=== PATIENT | male | born 1975 | race Caucasian/White ===

== ENCOUNTER 2018-09-20 23:56 | Inpatient (IN) | payer MEDICARE, OTHER ==
[~2018-09-20] VITALS: Ht 152.4 cm; Wt 64.9 kg
[~2018-09-20 23:56] MED LIST: RENVELA; diovan; norvasc; prevacid
[2018-09-21] VITALS (53 sets, daily range): BP systolic 133–185; BP diastolic 57–99
[2018-09-21] MEDS ORDERED: SODIUM CHLORIDE 0.9% 1,000 ML IV ONE (00:13)
[2018-09-21] MEDS ORDERED: ONDANSETRON HCL 4MG/2ML INJ IV STA (00:13)
[2018-09-21] MEDS ORDERED: AZITHROMYCIN 500 MG in DEXT 5% WATER 250 ML IV ONE (00:15)
[2018-09-21] MEDS ORDERED: CEFTRIAXONE 1 G PREMIX 50 ML IV ONE (00:15)
[2018-09-21] MEDS ORDERED: DEXTROSE 50% WATER 50ML SYRINGE IV ONE (00:15)
[2018-09-21 00:46] LABS: BG BASE EXCESS -5.9 mmol/L (-2.0-2.0); BG CARBOXYHEMOGLOBIN 1.3 % (0.5-1.5); BG DEOXYHEMOGLOBIN 9.3 % (0.0-5.0); BG FRACTION INSPIRED OXYGEN 100; BG HCO3 ACT 20.7 mmol/L (22.0-26.0); BG METHEMOGLOBIN 0.3 % (0.0-1.5); BG OXYGEN SATURATION 90.5 % (92.0-98.5); BG OXYHEMOGLOBIN 89.1 % (94.0-97.0); BG PCO2 44.9 mmHg (35.0-45.0); BG PH 7.282 (7.350-7.450); BG PO2 72.3 mmHg (75.0-100.0); BG SAMPLE SITE RIGHT RADIAL; BG TOTAL HEMOGLOBIN 12.4 g/dL (12.0-18.0); BG VENT MODE MASK - NRB
[2018-09-21 00:59] LABS: INR 1.1; PROTHROMBIN TIME 11.3 sec (9.1-11.1)
[2018-09-21 01:00] LABS: BASOPHILS % 1.1 % (0.0-2.0); HEMATOCRIT. 39.7 % (42.0-52.0); HEMOGLOBIN. 12.7 g/dL (14.0-18.0); LYMPHOCYTES % 8.1 % (20.0-50.0); MEAN CORPUSCULAR VOLUME 93.8 fL (80.0-94.0); MEAN PLATELET VOLUME 8.5 fl (7.4-10.4); MONOCYTES % 5.4 % (2.0-8.0); NEUTROPHILS % 82.4 % (40.0-76.0); PLATELET 234 x1000/uL (130-400); RED BLOOD CELL COUNT 4.24 mill/uL (4.7-6.1)
[2018-09-21] MEDS ORDERED: HYDROCORTISONE SOD SUCCINATE 100 MG/2 ML VIAL IV ONE (01:00)
[2018-09-21 01:01] LABS: CHLORIDE 98 mEq/L (98-107)
[2018-09-21 01:07] LABS: ETHANOL BLOOD < 10 mg/dL
[2018-09-21 01:08] LABS: BETA HYDROXYBUTYRATE 0.4 mMol/L (0.0-0.3)
[2018-09-21] MEDS ORDERED: DEXT 5%/0.45% NACL 1000ML 1,000 ML IV SCH (04:01)
[2018-09-21] MEDS ORDERED: PIPERACILLIN/TAZ 3.375G PREMIX 50 ML IV SCH (04:15)
[2018-09-21] MEDS ORDERED: VANCOMYCIN 1 G PREMIX 200 ML IV NR (04:15)
[2018-09-21] MEDS ORDERED: ONDANSETRON HCL 4MG/2ML INJ IV PRN (04:15)
[2018-09-21] MEDS ORDERED: GUAIFENESIN 200MG/10ML SUGAR FREE UDC PO PRN (04:15)
[2018-09-21] MEDS: IPRATROPIUM/ALBUTEROL 0.5-3(2.5)MG/3ML NEB HHN SCH ×6 (04:15→23:55)
[2018-09-21] MEDS ORDERED: IPRATROPIUM/ALBUTEROL 0.5-3(2.5)MG/3ML NEB INH PRN (04:15)
[2018-09-21] MEDS ORDERED: DEXTROSE 50% WATER 50ML SYRINGE IV PRN (04:15)
[2018-09-21] MEDS ORDERED: DIPHENHYDRAMINE 50MG/ML VIAL IV PRN (04:15)
[2018-09-21] MEDS: INSULIN LISPRO 100 UNITS/ML SUBCUT SCH ×4 (09:00→20:36)
[2018-09-21] MEDS: BLOOD SUGAR DIAGNOSTIC STRIP TEST SCH ×4 (09:00→20:18)
[2018-09-21] MEDS ORDERED: PANTOPRAZOLE SODIUM 40 MG/VIAL IV SCH (09:00)
[2018-09-21] MEDS ORDERED: ALPRAZOLAM 0.25 MG TABLET PO SCH (10:15)
[2018-09-21] MEDS ORDERED: IPRATROPIUM/ALBUTEROL 0.5-3(2.5)MG/3ML NEB HHN PRN (10:15)
[2018-09-21] MEDS: OMEPRAZOLE 20MG CAPSULE EXTENDED RELEASE PO SCH (10:40)
[2018-09-21] MEDS: FOLIC ACID/VITAMIN B COMP W-C TABLET PO SCH (10:40)
[2018-09-21] MEDS: AMLODIPINE 10MG TABLET PO SCH (10:40)
[2018-09-21] MEDS: PIPERACILLIN/TAZ 2.25G PREMIX 50 ML IV SCH ×2 (11:46→16:52)
[2018-09-21] MEDS: CALCIUM CARBONATE 500MG TABLET CHEW PO SCH ×2 (13:20→16:51)
[2018-09-21] MEDS: HYDRALAZINE HCL 100MG TABLET PO SCH ×3 (14:00→21:28)
[2018-09-21] MEDS: CLONIDINE 0.1MG TABLET PO PRN (16:52)
[2018-09-21] MEDS: LABETALOL HCL 100MG TABLET PO SCH (20:04)
[2018-09-22] VITALS (29 sets, daily range): BP systolic 134–164; BP diastolic 57–76
[2018-09-22] MEDS: CLONIDINE 0.1MG TABLET PO PRN (00:21)
[2018-09-22] MEDS: ACETAMINOPHEN 325MG TABLET PO PRN ×3 (00:28→04:08)
[2018-09-22] MEDS: PIPERACILLIN/TAZ 2.25G PREMIX 50 ML IV SCH ×2 (02:07→10:01)
[2018-09-22] MEDS: IPRATROPIUM/ALBUTEROL 0.5-3(2.5)MG/3ML NEB HHN SCH ×2 (04:12→08:41)
[2018-09-22] MEDS: HYDRALAZINE HCL 100MG TABLET PO SCH (05:26)
[2018-09-22] MEDS: BLOOD SUGAR DIAGNOSTIC STRIP TEST SCH (08:05)
[2018-09-22] MEDS: OMEPRAZOLE 20MG CAPSULE EXTENDED RELEASE PO SCH (08:05)
[2018-09-22] MEDS: CALCIUM CARBONATE 500MG TABLET CHEW PO SCH (08:05)
[2018-09-22] MEDS: FOLIC ACID/VITAMIN B COMP W-C TABLET PO SCH (08:05)
[2018-09-22] MEDS: INSULIN LISPRO 100 UNITS/ML SUBCUT SCH (08:06)
[2018-09-22] MEDS: LABETALOL HCL 100MG TABLET PO SCH (08:08)
[2018-09-22] MEDS: AMLODIPINE 10MG TABLET PO SCH (08:08)
[2018-09-22] MEDS ORDERED: LOSARTAN POTASSIUM 100 MG TABLET PO SCH (09:00)
[2018-09-22] MEDS ORDERED: VANCOMYCIN 500 MG PREMIX 100 ML IV SCH (16:00)
== END 2018-09-22 12:00 | disposition left against medical advice (07) | DRG 193 ==
LOC: ER 23:56 → CVICU 09-21 02:42 → EDBEDREQSVC 09-21 02:49 → EDBEDREQTM 09-21 02:49 → EDBEDREQ 09-21 02:49 → ENRESERV 09-21 07:17
PROVIDERS: ADMIT Internal Medicine; ATTEND Internal Medicine
PROC: 5A09357 Assistance with Respiratory Ventilation, Less than 24 Consecutive Hours, Continuous Positive Airway Pressure (ICD-10-PCS; principal; 2018-09-21)
PROC: 5A1D70Z Performance of Urinary Filtration, Intermittent, Less than 6 Hours Per Day (ICD-10-PCS; 2018-09-21)
PROC: 5A1D70Z Performance of Urinary Filtration, Intermittent, Less than 6 Hours Per Day (ICD-10-PCS; 2018-09-22)
DX: J18.9 Pneumonia, unspecified organism (principal); J96.01 Acute respiratory failure with hypoxia; G93.41 Metabolic encephalopathy; N18.6 End stage renal disease; I50.32 Chronic diastolic (congestive) heart failure; I13.2 Hypertensive heart and chronic kidney disease with heart failure and with stage 5 chronic kidney disease, or end stage renal disease; E10.649 Type 1 diabetes mellitus with hypoglycemia without coma; E87.5 Hyperkalemia; D64.9 Anemia, unspecified; I27.20 Pulmonary hypertension, unspecified; E10.40 Type 1 diabetes mellitus with diabetic neuropathy, unspecified; E10.65 Type 1 diabetes mellitus with hyperglycemia; I44.4 Left anterior fascicular block; I45.81 Long QT syndrome; E10.319 Type 1 diabetes mellitus with unspecified diabetic retinopathy without macular edema; E10.22 Type 1 diabetes mellitus with diabetic chronic kidney disease; E10.51 Type 1 diabetes mellitus with diabetic peripheral angiopathy without gangrene; Z79.4 Long term (current) use of insulin; Z82.3 Family history of stroke; Z82.49 Family history of ischemic heart disease and other diseases of the circulatory system; Z89.421 Acquired absence of other right toe(s); Z83.3 Family history of diabetes mellitus; Z91.15 Patient's noncompliance with renal dialysis; Z91.19 Patient's noncompliance with other medical treatment and regimen; Z99.2 Dependence on renal dialysis; Z89.431 Acquired absence of right foot
CPT/HCPCS: 36415; 36600; 71045; 80048; 80320; 82010; 82375; 82805; 82962; 83605; 84145; 84443; 84484; 87804; 93005; 93923; 96365; 96367; 99291; J0456; J0696; J1720; J1815; J2405; J2543; J3370; J7030; J7040; J7060; J7620; G0480

== ENCOUNTER 2018-11-22 22:27 | Emergency (ER) | payer MEDICARE, OTHER ==
[~2018-11-22] VITALS: Ht 172.7 cm; Wt 175.0 kg
[2018-11-22] MEDS ORDERED: DEXT 10% WATER 1,000 ML IV ONE (23:25)
[2018-11-23 00:52] VITALS: BP 139/65
== END 2018-11-23 01:06 | disposition left against medical advice (07) ==
LOC: ER 22:27 → CANBEDREQ 11-23 01:59
DX: E11.649 Type 2 diabetes mellitus with hypoglycemia without coma (principal); E11.22 Type 2 diabetes mellitus with diabetic chronic kidney disease; N18.6 End stage renal disease; Z99.2 Dependence on renal dialysis; Z79.899 Other long term (current) drug therapy
CPT/HCPCS: 71045; 82962; 93005; 99283

== ENCOUNTER 2019-05-07 12:55 | Emergency (ER) | payer MEDICARE, OTHER ==
[~2019-05-07] VITALS: Ht 165.1 cm; Wt 73.0 kg
[2019-05-07] MEDS ORDERED: DEXTROSE 50% WATER 50ML SYRINGE IV ONE ×2 (13:06→13:30)
[2019-05-07 13:39] LABS: HEMATOCRIT. 44.2 % (42.0-52.0); HEMOGLOBIN. 14.8 g/dL (14.0-18.0); MEAN CORPUSCULAR HEMOGLOBIN 31.1 pg (28.0-32.0); MEAN CORPUSCULAR VOLUME 93.1 fL (80.0-94.0); MEAN PLATELET VOLUME 8.2 fl (7.4-10.4); PLATELET 240 x1000/uL (130-400); RED BLOOD CELL COUNT 4.75 mill/uL (4.7-6.1); RED CELL DISTRIBUTION WIDTH 16.4 % (11.6-14.6)
[2019-05-07 13:46] LABS: CHLORIDE 102 mEq/L (98-107)
[2019-05-07 14:05] LABS: PLATELET ESTIMATE NORMAL
[2019-05-07 14:17] VITALS: BP 118/67
[2019-05-07 16:25] LABS: CLARITY URINE CLEAR (CLEAR); COLOR URINE YELLOW (YELLOW); KETONES URINE NEGATIVE (NEGATIVE); LEUKOCYTE ESTERASE URINE NEGATIVE (NEGATIVE); NITRITE URINE NEGATIVE (NEGATIVE); OCCULT BLOOD URINE NEGATIVE (NEGATIVE); PH URINE 6.5 (4.5-8.0); PROTEIN URINE NEGATIVE (NEGATIVE); SPECIFIC GRAVITY URINE 1.007 (1.005-1.030); UROBILINOGEN URINE 0.2 E.U./dL (0.2-1.0)
== END 2019-05-07 14:22 | disposition left against medical advice (07) ==
LOC: ER 13:17
DX: E11.649 Type 2 diabetes mellitus with hypoglycemia without coma (principal); I12.0 Hypertensive chronic kidney disease with stage 5 chronic kidney disease or end stage renal disease; I50.9 Heart failure, unspecified; N18.6 End stage renal disease; Z99.2 Dependence on renal dialysis
CPT/HCPCS: 36415; 81003; 82962; 96374; 99283

== ENCOUNTER 2019-06-20 09:02 | Inpatient (IN) | payer MEDICARE, OTHER ==
[~2019-06-20] VITALS: Ht 160 cm; Wt 61.2 kg
[~2019-06-20 09:02] MED LIST changes: -RENVELA; +RENVELA PO; -diovan; +diovan PO; -norvasc; +norvasc PO; -prevacid; +prevacid PO
[2019-06-20] MEDS ORDERED: SODIUM CHLORIDE 0.9% 1000ML BAG (SEPSIS BOLUS) IV ONE (10:15)
[2019-06-20 10:24] LABS: HEMATOCRIT. 26.1 % (42.0-52.0); HEMOGLOBIN. 8.8 g/dL (14.0-18.0); MEAN CORPUSCULAR HEMOGLOBIN 30.4 pg (28.0-32.0); MEAN CORPUSCULAR VOLUME 89.7 fL (80.0-94.0); MEAN PLATELET VOLUME 9.3 fl (7.4-10.4); PLATELET 248 x1000/uL (130-400); RED BLOOD CELL COUNT 2.91 mill/uL (4.7-6.1); RED CELL DISTRIBUTION WIDTH 15.5 % (11.6-14.6)
[2019-06-20 10:27] LABS: CHLORIDE 93 mEq/L (98-107)
[2019-06-20 10:56] LABS: PLATELET ESTIMATE NORMAL
[2019-06-20] MEDS ORDERED: AZITHROMYCIN 500 MG in DEXT 5% WATER 250 ML IV ONE (12:15)
[2019-06-20] MEDS ORDERED: PIPERACILLIN/TAZ 3.375G PREMIX 50 ML IV ONE (12:15)
[2019-06-20] MEDS ORDERED: VANCOMYCIN 1 G PREMIX 200 ML IV ONE (12:15)
[2019-06-20] MEDS ORDERED: INSULIN REGULAR (HUMULIN R) 300UNITS/3ML SUBCUT ONE (14:00)
[2019-06-20] MEDS ORDERED: ONDANSETRON HCL 4MG/2ML INJ IV PRN (14:45)
[2019-06-20] MEDS ORDERED: AZITHROMYCIN 500 MG TABLET PO SCH ×2 (15:00→20:30)
[2019-06-20] MEDS ORDERED: POTASSIUM CHLORIDE 20MEQ/PACKET PO ONE (15:00)
[2019-06-20] MEDS ORDERED: BLOOD SUGAR DIAGNOSTIC STRIP TEST SCH (17:00)
[2019-06-20] MEDS ORDERED: PIPERACILLIN/TAZ 3.375G PREMIX 50 ML IV SCH (18:00)
[2019-06-20 20:00] VITALS: BP 161/59
[2019-06-20] MEDS ORDERED: DEXTROSE 50% WATER 50ML SYRINGE IV PRN (20:00)
[2019-06-20] MEDS ORDERED: POTASSIUM CHLORIDE 20MEQ/PACKET PO NR (20:15)
[2019-06-20] MEDS: HEPARIN 5000 UNITS/ML VIAL SUBCUT SCH (20:54)
[2019-06-20] MEDS ORDERED: INSULIN LISPRO 100 UNITS/ML SUBCUT SCH (21:00)
[2019-06-20] MEDS: PIPERACILLIN/TAZOBACTAM 3.375 G in DEXT 5% WATER 100 ML IV SCH (21:51)
[2019-06-20] MEDS: BLOOD SUGAR DIAGNOSTIC STRIP TEST SCH (22:05)
[2019-06-20] MEDS ORDERED: INSULIN LISPRO 100 UNITS/ML SUBCUT NR (22:45)
[2019-06-20] MEDS: GUAIFENESIN-DM 200MG-20MG/10ML UDC PO PRN (22:49)
[2019-06-20] MEDS ORDERED: VANCOMYCIN 500 MG PREMIX 100 ML IV NR (23:00)
[2019-06-20] MEDS: ACETAMINOPHEN 325MG TABLET PO PRN (23:40)
[2019-06-21] VITALS: BP_SYST 150; BP_SYST 154; BP_DIAS 53; BP_DIAS 71
[2019-06-21] MEDS: INSULIN GLARGINE UD 100 UNITS/ML SYR SUBCUT SCH ×2 (00:19→22:03)
[2019-06-21] MEDS ORDERED: INS7030 SUBCUT (00:58)
[2019-06-21 04:00] VITALS: BP 145/56
[2019-06-21] MEDS: PIPERACILLIN/TAZOBACTAM 3.375 G in DEXT 5% WATER 100 ML IV SCH (05:45)
[2019-06-21] MEDS: BLOOD SUGAR DIAGNOSTIC STRIP TEST SCH ×4 (06:44→21:00)
[2019-06-21] MEDS: GUAIFENESIN-DM 200MG-20MG/10ML UDC PO PRN ×3 (07:13→21:19)
[2019-06-21 08:00] VITALS: BP 156/98
[2019-06-21] MEDS: HEPARIN 5000 UNITS/ML VIAL SUBCUT SCH ×2 (08:18→21:18)
[2019-06-21] MEDS: INSULIN LISPRO 100 UNITS/ML SUBCUT SCH ×4 (08:23→21:00)
[2019-06-21] MEDS: AZITHROMYCIN 500 MG TABLET PO SCH (08:25)
[2019-06-21 08:28] LABS: CHLORIDE 94 mEq/L (98-107)
[2019-06-21] MEDS: ACETAMINOPHEN 325MG TABLET PO PRN ×2 (09:41→23:05)
[2019-06-21 09:42] LABS: BASOPHILS % 1.1 % (0.0-2.0); EOSINOPHILS % 1.4 % (0.0-5.0); HEMATOCRIT. 26.6 % (42.0-52.0); HEMOGLOBIN. 8.8 g/dL (14.0-18.0); LYMPHOCYTES % 7.1 % (20.0-50.0); MEAN CORPUSCULAR HEMOGLOBIN 29.9 pg (28.0-32.0); MEAN CORPUSCULAR VOLUME 90.4 fL (80.0-94.0); MEAN PLATELET VOLUME 9.2 fl (7.4-10.4); MONOCYTES % 7.8 % (2.0-8.0); NEUTROPHILS % 82.6 % (40.0-76.0); PLATELET 203 x1000/uL (130-400); RED BLOOD CELL COUNT 2.94 mill/uL (4.7-6.1); RED CELL DISTRIBUTION WIDTH 15.6 % (11.6-14.6)
[2019-06-21] MEDS ORDERED: POTASSIUM CHLORIDE 20MEQ/PACKET PO NR (10:00)
[2019-06-21 12:00] VITALS: BP 134/86
[2019-06-21] MEDS: PIPERACILLIN/TAZOBACTAM 2.25 G in DEXTROSE 5% WATER 50 ML IV SCH ×2 (14:02→22:05)
[2019-06-21 16:00] VITALS: BP 158/63
[2019-06-21 20:00] VITALS: BP 146/58
[2019-06-22] VITALS (7 sets, daily range): BP systolic 128–169; BP diastolic 47–73
[2019-06-22] MEDS: PIPERACILLIN/TAZOBACTAM 2.25 G in DEXTROSE 5% WATER 50 ML IV SCH ×3 (05:17→22:46)
[2019-06-22] MEDS: BLOOD SUGAR DIAGNOSTIC STRIP TEST SCH ×4 (06:31→21:25)
[2019-06-22] MEDS: HEPARIN 5000 UNITS/ML VIAL SUBCUT SCH ×2 (08:13→21:45)
[2019-06-22] MEDS: INSULIN LISPRO 100 UNITS/ML SUBCUT SCH ×4 (08:14→21:44)
[2019-06-22] MEDS: AZITHROMYCIN 500 MG TABLET PO SCH (08:14)
[2019-06-22 08:38] LABS: BASOPHILS % 0.9 % (0.0-2.0); HEMATOCRIT. 26.8 % (42.0-52.0); HEMOGLOBIN. 8.9 g/dL (14.0-18.0); MEAN CORPUSCULAR HEMOGLOBIN 29.9 pg (28.0-32.0); MEAN CORPUSCULAR VOLUME 90.3 fL (80.0-94.0); MEAN PLATELET VOLUME 8.7 fl (7.4-10.4); MONOCYTES % 9.7 % (2.0-8.0); NEUTROPHILS % 77.4 % (40.0-76.0); PLATELET 213 x1000/uL (130-400); RED BLOOD CELL COUNT 2.97 mill/uL (4.7-6.1); RED CELL DISTRIBUTION WIDTH 15.6 % (11.6-14.6)
[2019-06-22 08:54] LABS: PHOSPHORUS 4.9 mg/dL (2.5-4.9)
[2019-06-22] MEDS: GUAIFENESIN-DM 200MG-20MG/10ML UDC PO PRN ×2 (09:28→16:03)
[2019-06-22] MEDS ORDERED: AMOX-424 MT (14:12)
[2019-06-22] MEDS: INSULIN GLARGINE UD 100 UNITS/ML SYR SUBCUT SCH (21:43)
[2019-06-23] VITALS: BP 153/63
[2019-06-23] MEDS ORDERED: EPOETIN ALFA 10000UNITS/ML VIAL SUBCUT NR
[2019-06-23 04:00] VITALS: BP 184/70
[2019-06-23] MEDS: PIPERACILLIN/TAZOBACTAM 2.25 G in DEXTROSE 5% WATER 50 ML IV SCH (05:39)
[2019-06-23] MEDS: BLOOD SUGAR DIAGNOSTIC STRIP TEST SCH (06:46)
[2019-06-23 08:09] VITALS: BP 171/72
[2019-06-23] MEDS: INSULIN LISPRO 100 UNITS/ML SUBCUT SCH (08:15)
[2019-06-23] MEDS: AZITHROMYCIN 500 MG TABLET PO SCH (08:18)
[2019-06-23] MEDS: HEPARIN 5000 UNITS/ML VIAL SUBCUT SCH (08:19)
[2019-06-23] MEDS ORDERED: AMLODIPINE 10MG TABLET PO SCH (09:00)
== END 2019-06-23 10:23 | disposition home or self-care (01) | DRG 871 ==
LOC: ER 09:02 → 6WST 13:22 → ENRESERV 17:41
PROVIDERS: ADMIT Internal Medicine; ATTEND Internal Medicine
PROC: 5A1D70Z Performance of Urinary Filtration, Intermittent, Less than 6 Hours Per Day (ICD-10-PCS; principal; 2019-06-21)
DX: A41.9 Sepsis, unspecified organism (principal); N18.6 End stage renal disease; J96.00 Acute respiratory failure, unspecified whether with hypoxia or hypercapnia; I13.2 Hypertensive heart and chronic kidney disease with heart failure and with stage 5 chronic kidney disease, or end stage renal disease; I50.32 Chronic diastolic (congestive) heart failure; E87.1 Hypo-osmolality and hyponatremia; E10.22 Type 1 diabetes mellitus with diabetic chronic kidney disease; E78.00 Pure hypercholesterolemia, unspecified; E10.51 Type 1 diabetes mellitus with diabetic peripheral angiopathy without gangrene; E10.40 Type 1 diabetes mellitus with diabetic neuropathy, unspecified; E10.319 Type 1 diabetes mellitus with unspecified diabetic retinopathy without macular edema; D63.8 Anemia in other chronic diseases classified elsewhere; Z79.4 Long term (current) use of insulin; Z79.899 Other long term (current) drug therapy; Z89.421 Acquired absence of other right toe(s)
CPT/HCPCS: 36415; 71045; 80048; 80053; 80202; 82962; 83036; 83605; 83735; 84100; 84145; 84484; 85025; 87804; 99285; J0456; J0885; J1644; J1815; J2543; J3370; J7030; J7060

== ENCOUNTER 2020-04-27 10:47 | Inpatient (IN) | payer MEDICARE, OTHER ==
[~2020-04-27] VITALS: Ht 167.6 cm; Wt 59.0 kg
[~2020-04-27 10:47] MED LIST changes: +AMOX-424 MT; +INS7030 SUBCUT
[2020-04-27] MEDS ORDERED: INSULIN REGULAR (HUMULIN R) 300UNITS/3ML IV ONE (13:00)
[2020-04-27] MEDS ORDERED: SODIUM CHLORIDE 0.9% 1,000 ML IV ONE (13:00)
[2020-04-27 13:34] LABS: CHLORIDE 83 mEq/L (98-107)
[2020-04-27 13:35] LABS: HEMATOCRIT. 32.1 % (42.0-52.0); HEMOGLOBIN. 9.7 g/dL (14.0-18.0); MEAN CORPUSCULAR HEMOGLOBIN 30.9 pg (28.0-32.0); MEAN CORPUSCULAR VOLUME 101.8 fL (80.0-94.0); MEAN PLATELET VOLUME 9.4 fl (7.4-10.4); PLATELET 305 x1000/uL (130-400); RED BLOOD CELL COUNT 3.15 mill/uL (4.7-6.1); RED CELL DISTRIBUTION WIDTH 16.2 % (11.6-14.6)
[2020-04-27 13:44] LABS: BETA HYDROXYBUTYRATE 3.9 mMol/L (0.0-0.3)
[2020-04-27 13:53] LABS: INR 1.2; PROTHROMBIN TIME 12.1 sec (9.6-11.0)
[2020-04-27] MEDS ORDERED: SODIUM BICARBONATE 8.4% 1 MEQ/ML 50ML SYR IV SCH (14:00)
[2020-04-27] MEDS ORDERED: INSULIN REGULAR (HUMULIN R) 300UNITS/3ML IV SCH (14:30)
[2020-04-27] MEDS ORDERED: SODIUM POLYSTYRENE SULFONATE 15 G/60 ML BOT PO SCH (14:30)
[2020-04-27] MEDS ORDERED: CALCIUM CHLORIDE 1,000 MG in DEXT 5% WATER 100 ML IV SCH (14:30)
[2020-04-27 16:11] LABS: PLATELET ESTIMATE NORMAL
[2020-04-27] MEDS ORDERED: GUAIFENESIN 200MG/10ML SUGAR FREE UDC PO PRN (18:00)
[2020-04-27] MEDS ORDERED: ACETAMINOPHEN 325MG TABLET PO PRN (18:00)
[2020-04-27] MEDS ORDERED: DIPHENHYDRAMINE 50MG/ML VIAL IV PRN (18:00)
[2020-04-27] MEDS ORDERED: HYDROCODONE/ACETAMINOPHEN 5/325MG TABLET PO PRN (18:00)
[2020-04-27] MEDS ORDERED: ONDANSETRON HCL 4MG/2ML INJ IV PRN (18:00)
[2020-04-27] MEDS ORDERED: DOCUSATE SODIUM 100MG CAPSULE PO PRN (18:00)
[2020-04-27] MEDS ORDERED: DEXTROSE 50% WATER 50ML SYRINGE IV PRN (20:15)
[2020-04-27] MEDS: BLOOD SUGAR DIAGNOSTIC STRIP TEST SCH (21:00)
[2020-04-27] MEDS ORDERED: INSULIN GLARGINE UD 100 UNITS/ML SYR SUBCUT SCH (22:00)
[2020-04-27 23:28] VITALS: BP 143/65
[2020-04-28] VITALS (7 sets, daily range): BP systolic 143–180; BP diastolic 52–68
[2020-04-28] MEDS: ENOXAPARIN 40MG/0.4ML SYR SUBCUT SCH ×2 (00:28→18:32)
[2020-04-28] MEDS: INSULIN LISPRO 100 UNITS/ML SUBCUT SCH ×5 (00:30→20:44)
[2020-04-28] MEDS: BLOOD SUGAR DIAGNOSTIC STRIP TEST SCH ×4 (06:41→20:43)
[2020-04-28 07:08] LABS: CHLORIDE 98 mEq/L (98-107)
[2020-04-28 08:57] LABS: HEMATOCRIT. 31.3 % (42.0-52.0); HEMOGLOBIN. 10.2 g/dL (14.0-18.0); MEAN CORPUSCULAR HEMOGLOBIN 30.7 pg (28.0-32.0); MEAN CORPUSCULAR VOLUME 93.7 fL (80.0-94.0); MEAN PLATELET VOLUME 8.3 fl (7.4-10.4); PLATELET 345 x1000/uL (130-400); RED BLOOD CELL COUNT 3.33 mill/uL (4.7-6.1); RED CELL DISTRIBUTION WIDTH 15.6 % (11.6-14.6)
[2020-04-28] MEDS: AMLODIPINE 10MG TABLET PO SCH ×2 (09:08→09:17)
[2020-04-28 11:56] LABS: PHOSPHORUS 3.2 mg/dL (2.5-4.9)
[2020-04-28 13:05] LABS: PLATELET ESTIMATE NORMAL
[2020-04-28] MEDS: INS NPH/REG HM 70-30 100 UNITS/ML 10ML VIAL (HUMULIN 70-30) SUBCUT SCH (18:30)
[2020-04-28] MEDS ORDERED: EPOETIN ALFA-EPBX 4,000 UNIT/ML VIAL SUBCUT SCH (21:00)
[2020-04-29] VITALS: BP 168/68
[2020-04-29 04:00] VITALS: BP 126/72
[2020-04-29] MEDS: BLOOD SUGAR DIAGNOSTIC STRIP TEST SCH (06:16)
[2020-04-29] MEDS: INSULIN LISPRO 100 UNITS/ML SUBCUT SCH (06:17)
[2020-04-29 08:00] VITALS: BP 160/68
[2020-04-29] MEDS: INS NPH/REG HM 70-30 100 UNITS/ML 10ML VIAL (HUMULIN 70-30) SUBCUT SCH (08:13)
[2020-04-29] MEDS: AMLODIPINE 10MG TABLET PO SCH (08:14)
== END 2020-04-29 09:00 | disposition left against medical advice (07) | DRG 291 ==
LOC: ER 10:47 → 6WST 14:01 → EDBEDREQSVC 14:04 → EDBEDREQ 14:04 → EDBEDREQTM 14:04 → CANRESERV 19:39 → ENRESERV 19:39 → EDBEDREQSVC 20:39 → EDBEDREQTM 20:39 → ENRESERV 21:16 → 7EST 04-28 21:05
PROVIDERS: ADMIT Hospitalist; ATTEND Hospitalist
PROC: 5A1D70Z Performance of Urinary Filtration, Intermittent, Less than 6 Hours Per Day (ICD-10-PCS; principal; 2020-04-27)
PROC: 5A1D70Z Performance of Urinary Filtration, Intermittent, Less than 6 Hours Per Day (ICD-10-PCS; 2020-04-28)
DX: I13.2 Hypertensive heart and chronic kidney disease with heart failure and with stage 5 chronic kidney disease, or end stage renal disease (principal); I50.33 Acute on chronic diastolic (congestive) heart failure; J96.01 Acute respiratory failure with hypoxia; N18.6 End stage renal disease; E44.0 Moderate protein-calorie malnutrition; E87.0 Hyperosmolality and hypernatremia; E87.1 Hypo-osmolality and hyponatremia; D63.1 Anemia in chronic kidney disease; D72.829 Elevated white blood cell count, unspecified; E11.22 Type 2 diabetes mellitus with diabetic chronic kidney disease; E11.65 Type 2 diabetes mellitus with hyperglycemia; E78.00 Pure hypercholesterolemia, unspecified; E87.5 Hyperkalemia; Z20.828 Contact with and (suspected) exposure to other viral communicable diseases; Z79.4 Long term (current) use of insulin; Z68.21 Body mass index [BMI] 21.0-21.9, adult; Z99.2 Dependence on renal dialysis; Z79.899 Other long term (current) drug therapy
CPT/HCPCS: 36415; 71045; 80053; 82010; 82962; 83036; 84100; 85025; 87635; 93005; 93970; 99291; J1650; J1815; J3490; J7030; J7060

== ENCOUNTER 2020-10-13 09:21 | Inpatient (IN) | payer MEDICARE, MEDICAID ==
[~2020-10-13] VITALS: Ht 167.6 cm; Wt 64.9 kg
[~2020-10-13 09:21] MED LIST changes: -AMOX-424 MT; -RENVELA PO; -diovan PO; -norvasc PO; -prevacid PO
[2020-10-13 11:45] LABS: BASOPHILS % 1.3 % (0.0-2.0); EOSINOPHILS % 2.8 % (0.0-5.0); HEMATOCRIT. 29.6 % (42.0-52.0); HEMOGLOBIN. 9.6 g/dL (14.0-18.0); LYMPHOCYTES % 7.8 % (20.0-50.0); MEAN CORPUSCULAR HEMOGLOBIN 32.2 pg (28.0-32.0); MEAN CORPUSCULAR VOLUME 99.7 fL (80.0-94.0); MEAN PLATELET VOLUME 8.6 fl (7.4-10.4); MONOCYTES % 8.6 % (2.0-8.0); NEUTROPHILS % 79.5 % (40.0-76.0); PLATELET 293 x1000/uL (130-400); RED BLOOD CELL COUNT 2.97 mill/uL (4.7-6.1); RED CELL DISTRIBUTION WIDTH 16.4 % (11.6-14.6)
[2020-10-13 11:54] LABS: CHLORIDE 96 mEq/L (98-107)
[2020-10-13] MEDS ORDERED: SODIUM BICARBONATE 8.4% 1 MEQ/ML 50ML SYR IV ONE (12:15)
[2020-10-13] MEDS ORDERED: DEXTROSE 50% WATER 50ML SYRINGE IV ONE (12:15)
[2020-10-13] MEDS ORDERED: INSULIN REGULAR (HUMULIN R) 300UNITS/3ML VIAL IV ONE (12:15)
[2020-10-13] MEDS ORDERED: ALBUTEROL (0.083%) 2.5MG/3ML NEB HHN ONE (12:15)
[2020-10-13] MEDS ORDERED: SODIUM POLYSTYRENE SULFONATE 15 G/60 ML BOT PO ONE (12:15)
[2020-10-13] MEDS ORDERED: IPRATROPIUM/ALBUTEROL 0.5-3(2.5)MG/3ML NEB HHN PRN (14:15)
[2020-10-13] MEDS ORDERED: HYDROCODONE/ACETAMINOPHEN 5/325MG TABLET PO PRN (14:15)
[2020-10-13] MEDS ORDERED: ONDANSETRON HCL 4MG/2ML INJ IV PRN (14:15)
[2020-10-13] MEDS ORDERED: DOCUSATE SODIUM 100MG CAPSULE PO PRN (14:15)
[2020-10-13] MEDS ORDERED: ACETAMINOPHEN 325MG TABLET PO PRN ×2 (14:15)
[2020-10-13] MEDS ORDERED: LORAZEPAM 0.5MG TABLET PO PRN (14:15)
[2020-10-13] MEDS ORDERED: DEXTROSE 50% WATER 50ML SYRINGE IV PRN (14:30)
[2020-10-13 16:00] VITALS: BP 143/65
[2020-10-13 16:25] VITALS: BP 134/84
[2020-10-13] MEDS: INSULIN LISPRO 100 UNITS/ML SUBCUT SCH ×2 (18:04→20:49)
[2020-10-13] MEDS: BLOOD SUGAR DIAGNOSTIC STRIP TEST SCH ×2 (18:06→20:49)
[2020-10-14] VITALS: BP 179/89
[2020-10-14 00:54] VITALS: BP 150/66
[2020-10-14 04:00] VITALS: BP 180/76
[2020-10-14] MEDS: CLONIDINE 0.1MG TABLET PO PRN ×2 (05:15→08:06)
[2020-10-14] MEDS: BLOOD SUGAR DIAGNOSTIC STRIP TEST SCH (06:06)
[2020-10-14] MEDS: INSULIN LISPRO 100 UNITS/ML SUBCUT SCH (06:06)
[2020-10-14 06:19] LABS: HEMATOCRIT. 29.9 % (42.0-52.0); HEMOGLOBIN. 9.5 g/dL (14.0-18.0); MEAN CORPUSCULAR HEMOGLOBIN 31.6 pg (28.0-32.0); MEAN CORPUSCULAR VOLUME 99.4 fL (80.0-94.0); MEAN PLATELET VOLUME 8.6 fl (7.4-10.4); PLATELET 293 x1000/uL (130-400); RED BLOOD CELL COUNT 3.01 mill/uL (4.7-6.1); RED CELL DISTRIBUTION WIDTH 16.1 % (11.6-14.6)
[2020-10-14] MEDS ORDERED: INSULIN LISPRO 100 UNITS/ML SUBCUT SCH (07:00)
[2020-10-14 08:00] VITALS: BP 195/66
[2020-10-14 14:02] LABS: PLATELET ESTIMATE NORMAL
== END 2020-10-14 08:30 | disposition left against medical advice (07) | DRG 640 ==
LOC: ER 09:32 → ENRESERV 14:37 → 8WST 15:33
PROVIDERS: ADMIT Internal Medicine; ATTEND Internal Medicine
PROC: 5A1D70Z Performance of Urinary Filtration, Intermittent, Less than 6 Hours Per Day (ICD-10-PCS; principal; 2020-10-14)
DX: E87.5 Hyperkalemia (principal); J96.01 Acute respiratory failure with hypoxia; N18.6 End stage renal disease; I13.2 Hypertensive heart and chronic kidney disease with heart failure and with stage 5 chronic kidney disease, or end stage renal disease; D64.9 Anemia, unspecified; I50.9 Heart failure, unspecified; E11.22 Type 2 diabetes mellitus with diabetic chronic kidney disease; E87.70 Fluid overload, unspecified; Z79.4 Long term (current) use of insulin; Z99.2 Dependence on renal dialysis; Z53.29 Procedure and treatment not carried out because of patient's decision for other reasons
CPT/HCPCS: 36415; 71045; 80048; 80053; 82962; 83036; 83880; 84484; 85025; 93005; 94640; 99285; J1815; J3490

== ENCOUNTER 2020-10-26 09:22 | Inpatient (IN) | payer MEDICARE, MEDICAID ==
[~2020-10-26] VITALS: Ht 160 cm; Wt 65.3 kg
[2020-10-26] MEDS ORDERED: DEXT 10% WATER 1,000 ML IV PRN (10:00)
[2020-10-26 10:11] LABS: HEMATOCRIT. 25.8 % (42.0-52.0); HEMOGLOBIN. 8.6 g/dL (14.0-18.0); MEAN CORPUSCULAR HEMOGLOBIN 33.1 pg (28.0-32.0); MEAN CORPUSCULAR VOLUME 99.1 fL (80.0-94.0); MEAN PLATELET VOLUME 8.8 fl (7.4-10.4); PLATELET 204 x1000/uL (130-400); RED BLOOD CELL COUNT 2.61 mill/uL (4.7-6.1); RED CELL DISTRIBUTION WIDTH 16.9 % (11.6-14.6)
[2020-10-26 10:16] LABS: CHLORIDE 100 mEq/L (98-107)
[2020-10-26 10:35] LABS: PLATELET ESTIMATE NORMAL
[2020-10-26] MEDS ORDERED: ONDANSETRON HCL 4MG/2ML INJ IV PRN (14:00)
[2020-10-26] MEDS ORDERED: ACETAMINOPHEN 325MG TABLET PO PRN (14:00)
[2020-10-26] MEDS ORDERED: IPRATROPIUM/ALBUTEROL 0.5-3(2.5)MG/3ML NEB HHN PRN (16:30)
[2020-10-26 16:35] VITALS: BP 185/74
[2020-10-26 16:39] VITALS: BP 185/74
[2020-10-26] MEDS ORDERED: AMLO10TA4 MT (16:51)
[2020-10-26] MEDS: BLOOD SUGAR DIAGNOSTIC STRIP TEST SCH ×2 (17:30→20:27)
[2020-10-26] MEDS: INSULIN LISPRO 100 UNITS/ML SUBCUT SCH ×2 (17:36→20:26)
[2020-10-26] MEDS ORDERED: VALS320T2 MT (17:47)
[2020-10-26] MEDS ORDERED: LANS30CA52 MT (17:48)
[2020-10-26] MEDS ORDERED: SEVE800T8 MT (17:48)
[2020-10-26] MEDS ORDERED: HYDR100T26 MT (17:48)
[2020-10-26] MEDS ORDERED: LABE100T8 MT (17:49)
[2020-10-26] MEDS ORDERED: [UNRECOGNIZED DRUG - CODE] MT (17:50)
[2020-10-26] MEDS ORDERED: SODI454P4 PO (17:50)
[2020-10-26] MEDS ORDERED: LANS30CA55 MT (17:51)
[2020-10-26 17:56] VITALS: BP 176/74
[2020-10-26 20:00] VITALS: BP 177/74
[2020-10-26] MEDS ORDERED: EPOETIN ALFA-EPBX 10,000 UNIT/ML VIAL SUBCUT NR (21:00)
[2020-10-26 22:00] VITALS: BP 157/67
[2020-10-27] VITALS: BP 167/68
[2020-10-27] MEDS: BLOOD SUGAR DIAGNOSTIC STRIP TEST SCH ×4 (07:53→20:19)
[2020-10-27 08:00] VITALS: BP 166/79
[2020-10-27] MEDS: INSULIN LISPRO 100 UNITS/ML SUBCUT SCH ×4 (08:18→20:25)
[2020-10-27] MEDS: HYDRALAZINE HCL 100MG TABLET PO SCH ×3 (10:08→20:42)
[2020-10-27] MEDS: AMLODIPINE 10MG TABLET PO SCH (10:08)
[2020-10-27] MEDS: LABETALOL HCL 100MG TABLET PO SCH ×2 (10:08→16:52)
[2020-10-27 12:00] VITALS: BP 154/84
[2020-10-27] MEDS ORDERED: INSULIN GLARGINE UD 100 UNITS/ML SYR SUBCUT NR (15:00)
[2020-10-27 16:00] VITALS: BP 147/62
[2020-10-27 20:00] VITALS: BP 148/64
[2020-10-27 20:12] LABS: BASOPHILS % 1.4 % (0.0-2.0); EOSINOPHILS % 2.4 % (0.0-5.0); HEMATOCRIT. 23.6 % (42.0-52.0); HEMOGLOBIN. 8.2 g/dL (14.0-18.0); LYMPHOCYTES % 10.6 % (20.0-50.0); MEAN CORPUSCULAR HEMOGLOBIN 33.6 pg (28.0-32.0); MEAN CORPUSCULAR VOLUME 97.2 fL (80.0-94.0); MEAN PLATELET VOLUME 8.7 fl (7.4-10.4); MONOCYTES % 8.2 % (2.0-8.0); NEUTROPHILS % 77.4 % (40.0-76.0); PLATELET 210 x1000/uL (130-400); RED BLOOD CELL COUNT 2.43 mill/uL (4.7-6.1); RED CELL DISTRIBUTION WIDTH 16.3 % (11.6-14.6)
[2020-10-27] MEDS ORDERED: POTASSIUM CHLORIDE 20MEQ TABLET SR PO NR (21:30)
[2020-10-27] MEDS ORDERED: INSULIN GLARGINE UD 100 UNITS/ML SYR SUBCUT SCH (22:00)
[2020-10-28] VITALS: BP 164/58
[2020-10-28] MEDS: DEXTROSE 50% WATER 50ML SYRINGE IV PRN ×2 (00:55→05:40)
[2020-10-28 04:00] VITALS: BP 155/69
[2020-10-28] MEDS: HYDRALAZINE HCL 100MG TABLET PO SCH (06:21)
[2020-10-28] MEDS: BLOOD SUGAR DIAGNOSTIC STRIP TEST SCH (07:30)
[2020-10-28 08:00] VITALS: BP 147/73
[2020-10-28] MEDS: INSULIN LISPRO 100 UNITS/ML SUBCUT SCH (08:00)
[2020-10-28] MEDS: AMLODIPINE 10MG TABLET PO SCH (09:00)
[2020-10-28] MEDS: LABETALOL HCL 100MG TABLET PO SCH (09:00)
== END 2020-10-28 12:24 | disposition left against medical advice (07) | DRG 73 ==
LOC: ER 09:37 → 5EST 11:44 → ENRESERV 14:42 → 5EST 23:18
PROVIDERS: ADMIT Internal Medicine Nephrology; ATTEND Internal Medicine Nephrology
PROC: 5A1D70Z Performance of Urinary Filtration, Intermittent, Less than 6 Hours Per Day (ICD-10-PCS; principal; 2020-10-27)
DX: G90.8 Other disorders of autonomic nervous system (principal); N18.6 End stage renal disease; E87.1 Hypo-osmolality and hyponatremia; I13.11 Hypertensive heart and chronic kidney disease without heart failure, with stage 5 chronic kidney disease, or end stage renal disease; J84.9 Interstitial pulmonary disease, unspecified; E10.649 Type 1 diabetes mellitus with hypoglycemia without coma; Z20.822 Contact with and (suspected) exposure to COVID-19; Z99.2 Dependence on renal dialysis; Z53.29 Procedure and treatment not carried out because of patient's decision for other reasons; E87.5 Hyperkalemia; D63.8 Anemia in other chronic diseases classified elsewhere; E10.22 Type 1 diabetes mellitus with diabetic chronic kidney disease
CPT/HCPCS: 36415; 71045; 80048; 80053; 82962; 84484; 85025; 87426; 93005; 99291; J0885; J1815

== ENCOUNTER 2021-06-09 02:03 | Inpatient (IN) | payer MEDICARE, MEDICAID ==
[~2021-06-09] VITALS: Ht 165.1 cm; Wt 67.1 kg
[~2021-06-09 02:03] MED LIST changes: +AMLO10TA4 MT; +HYDR100T26 MT; +LABE100T8 MT; +LANS30CA52 MT; +LANS30CA55 MT; +SEVE800T8 MT; +SODI454P4 PO; +VALS320T2 MT; +[UNRECOGNIZED DRUG - CODE] MT
[2021-06-09 03:18] LABS: HEMATOCRIT. 24.9 % (42.0-52.0); HEMOGLOBIN. 8.3 g/dL (14.0-18.0); MEAN CORPUSCULAR HEMOGLOBIN 32.8 pg (28.0-32.0); MEAN CORPUSCULAR VOLUME 98.3 fL (80.0-94.0); PLATELET 285 x1000/uL (130-400); RED BLOOD CELL COUNT 2.53 mill/uL (4.7-6.1); RED CELL DISTRIBUTION WIDTH 15.7 % (11.6-14.6)
[2021-06-09 03:31] LABS: CHLORIDE 95 mEq/L (98-107)
[2021-06-09 05:32] LABS: PLATELET ESTIMATE NORMAL
[2021-06-09] MEDS ORDERED: ONDANSETRON HCL 4MG/2ML INJ IV PRN (11:15)
[2021-06-09] MEDS ORDERED: GUAIFENESIN 200MG/10ML SUGAR FREE UDC PO PRN (11:15)
[2021-06-09] MEDS ORDERED: ACETAMINOPHEN 325MG TABLET PO PRN ×2 (11:15)
[2021-06-09] MEDS ORDERED: ZOLPIDEM TARTRATE 5MG TABLET PO PRN (11:15)
[2021-06-09] MEDS ORDERED: CLONIDINE 0.1MG TABLET PO PRN (11:15)
[2021-06-09] MEDS ORDERED: DIPHENHYDRAMINE 50MG/ML VIAL IV PRN (11:15)
[2021-06-09] MEDS ORDERED: MAGNESIUM/ALUMINUM HYDROXIDE/SIMETHICONE 30ML UDC PO PRN (11:15)
[2021-06-09] MEDS ORDERED: HYDRALAZINE 20MG/ML VIAL IV PRN (11:30)
[2021-06-09] MEDS: INSULIN LISPRO 100 UNITS/ML SUBCUT SCH ×3 (12:41→21:00)
[2021-06-09] MEDS: BLOOD SUGAR DIAGNOSTIC STRIP TEST SCH ×3 (13:07→21:04)
[2021-06-09] MEDS: SEVELAMER CARBONATE 800 MG TABLET PO SCH ×2 (13:07→15:46)
[2021-06-09 14:30] VITALS: BP 186/67
[2021-06-09] MEDS: HYDRALAZINE HCL 100MG TABLET PO SCH ×2 (15:45→22:00)
[2021-06-09] MEDS: SODIUM CHLORIDE 0.9% INJ 3ML FLUSH IVF SCH ×2 (15:48→21:52)
[2021-06-09 16:00] VITALS: BP 137/73
[2021-06-09 16:11] VITALS: BP 192/74
[2021-06-09] MEDS ORDERED: PNEUMOCOCCAL 23-VAL P-SAC VAC 0.5 ML IM ONE (19:00)
[2021-06-09 20:00] VITALS: BP_SYST 132; BP_SYST 142; BP_DIAS 51; BP_DIAS 64
[2021-06-09] MEDS: LABETALOL HCL 100MG TABLET PO SCH (21:00)
[2021-06-09] MEDS: INSULIN GLARGINE UD 100 UNITS/ML SYR SUBCUT SCH (21:55)
[2021-06-09 23:05] VITALS: BP 140/57
[2021-06-10] VITALS (18 sets, daily range): BP systolic 112–181; BP diastolic 58–76
[2021-06-10] MEDS: HYDRALAZINE HCL 100MG TABLET PO SCH ×3 (05:02→21:43)
[2021-06-10] MEDS: SODIUM CHLORIDE 0.9% INJ 3ML FLUSH IVF SCH ×3 (05:08→21:26)
[2021-06-10] MEDS: BLOOD SUGAR DIAGNOSTIC STRIP TEST SCH ×4 (05:34→20:36)
[2021-06-10] MEDS: INSULIN LISPRO 100 UNITS/ML SUBCUT SCH ×4 (06:14→21:28)
[2021-06-10] MEDS: SEVELAMER CARBONATE 800 MG TABLET PO SCH ×2 (07:40→14:36)
[2021-06-10] MEDS: DEXTROSE 50% WATER 50ML SYRINGE IV PRN ×2 (08:48→14:36)
[2021-06-10] MEDS: FOLIC ACID/VITAMIN B COMP W-C TABLET PO SCH (09:00)
[2021-06-10] MEDS: LABETALOL HCL 100MG TABLET PO SCH ×2 (09:00→20:35)
[2021-06-10 09:48] LABS: INR 1.1; PARTIAL THROMBOPLASTIN TIME 31.6 sec (23.4-31.0); PROTHROMBIN TIME 12.1 sec (9.6-11.0)
[2021-06-10 11:21] LABS: HEPATITIS B SURFACE ANTIGEN NEGATIVE
[2021-06-10] MEDS ORDERED: IOHEXOL-300 100 ML BOTTLE ONE (12:38)
[2021-06-10] MEDS ORDERED: LIDOCAINE HCL 1% 20ML VIAL (Pyxis) INJ ONE (12:38)
[2021-06-10] MEDS ORDERED: HEPARIN 1000 UNITS/ML 10ML ONE (12:39)
[2021-06-10] MEDS ORDERED: FENTANYL CITRATE/PF 50MCG/ML 2ML VIAL ONE (13:15)
[2021-06-10] MEDS ORDERED: FENTANYL CITRATE/PF 50MCG/ML 2ML VIAL IV NR (13:30)
[2021-06-10] MEDS ORDERED: EPOETIN ALFA-EPBX 10,000 UNIT/ML VIAL SUBCUT SCH (21:00)
[2021-06-10] MEDS: INSULIN GLARGINE UD 100 UNITS/ML SYR SUBCUT SCH (21:44)
[2021-06-11] VITALS: BP 152/58
[2021-06-11 04:00] VITALS: BP 149/73
[2021-06-11] MEDS: HYDRALAZINE HCL 100MG TABLET PO SCH (06:00)
[2021-06-11] MEDS: SODIUM CHLORIDE 0.9% INJ 3ML FLUSH IVF SCH (06:16)
[2021-06-11] MEDS: BLOOD SUGAR DIAGNOSTIC STRIP TEST SCH (06:17)
[2021-06-11] MEDS: INSULIN LISPRO 100 UNITS/ML SUBCUT SCH (06:17)
[2021-06-11 07:49] VITALS: BP 146/57
[2021-06-11] MEDS: LABETALOL HCL 100MG TABLET PO SCH (08:26)
[2021-06-11] MEDS: FOLIC ACID/VITAMIN B COMP W-C TABLET PO SCH (08:26)
[2021-06-11] MEDS: SEVELAMER CARBONATE 800 MG TABLET PO SCH (08:27)
== END 2021-06-11 08:36 | disposition left against medical advice (07) | DRG 291 ==
LOC: ER 02:03 → MICUSO 04:05 → 7EST 10:06 → MICUSO 10:16 → 8WST 13:03
PROVIDERS: ADMIT Internal Medicine; ATTEND Internal Medicine
PROC: 5A1D70Z Performance of Urinary Filtration, Intermittent, Less than 6 Hours Per Day (ICD-10-PCS; 2021-06-09)
PROC: B51W1ZZ Fluoroscopy of Dialysis Shunt/Fistula using Low Osmolar Contrast (ICD-10-PCS; principal; 2021-06-10)
PROC: 5A1D70Z Performance of Urinary Filtration, Intermittent, Less than 6 Hours Per Day (ICD-10-PCS; 2021-06-11)
DX: I13.2 Hypertensive heart and chronic kidney disease with heart failure and with stage 5 chronic kidney disease, or end stage renal disease (principal); N18.6 End stage renal disease; I50.33 Acute on chronic diastolic (congestive) heart failure; K85.90 Acute pancreatitis without necrosis or infection, unspecified; E46 Unspecified protein-calorie malnutrition; E87.1 Hypo-osmolality and hyponatremia; E11.22 Type 2 diabetes mellitus with diabetic chronic kidney disease; E11.319 Type 2 diabetes mellitus with unspecified diabetic retinopathy without macular edema; E11.51 Type 2 diabetes mellitus with diabetic peripheral angiopathy without gangrene; E11.65 Type 2 diabetes mellitus with hyperglycemia; E11.40 Type 2 diabetes mellitus with diabetic neuropathy, unspecified; E11.21 Type 2 diabetes mellitus with diabetic nephropathy; Z23 Encounter for immunization; E87.6 Hypokalemia; Z20.822 Contact with and (suspected) exposure to COVID-19; Z53.29 Procedure and treatment not carried out because of patient's decision for other reasons; I44.7 Left bundle-branch block, unspecified; D64.9 Anemia, unspecified; Z82.49 Family history of ischemic heart disease and other diseases of the circulatory system; Z83.3 Family history of diabetes mellitus; Z89.421 Acquired absence of other right toe(s); Z99.2 Dependence on renal dialysis; Z68.24 Body mass index [BMI] 24.0-24.9, adult; Z87.891 Personal history of nicotine dependence
CPT/HCPCS: 36415; 36901; 71045; 80053; 82962; 83036; 84484; 85025; 86705; 86709; 86803; 87340; 87426; 90732; 93005; 99152; 99153; 99285; C1725; C1766; C1769; C1887; J0885; J1644; J1815; J3010; J3490; Q9967; G0500

== ENCOUNTER 2021-07-07 05:12 | Emergency (ER) | payer MEDICARE, MEDICAID ==
[~2021-07-07] VITALS: Ht 167.6 cm; Wt 75.0 kg
[2021-07-07 14:40] VITALS: BP 154/80
[2021-07-07 15:20] LABS: HEMATOCRIT. 30.9 % (42.0-52.0); HEMOGLOBIN. 10.1 g/dL (14.0-18.0); MEAN CORPUSCULAR HEMOGLOBIN 31.8 pg (28.0-32.0); MEAN CORPUSCULAR VOLUME 97.6 fL (80.0-94.0); MEAN PLATELET VOLUME 9.3 fl (7.4-10.4); PLATELET 310 x1000/uL (130-400); RED BLOOD CELL COUNT 3.16 mill/uL (4.7-6.1); RED CELL DISTRIBUTION WIDTH 16.2 % (11.6-14.6)
[2021-07-07 15:22] LABS: CHLORIDE 100 mEq/L (98-107)
[2021-07-07] MEDS ORDERED: DEXTROSE 50% WATER 50ML SYRINGE IV PRN (16:15)
[2021-07-07 16:40] LABS: PLATELET ESTIMATE NORMAL
[2021-07-07] MEDS ORDERED: BLOOD SUGAR DIAGNOSTIC STRIP TEST SCH (17:00)
[2021-07-07] MEDS ORDERED: INSULIN LISPRO 100 UNITS/ML SUBCUT SCH (18:20)
== END 2021-07-07 16:40 | disposition left against medical advice (07) ==
LOC: ER 05:12 → CANBEDREQ 07-08 02:16
DX: I12.0 Hypertensive chronic kidney disease with stage 5 chronic kidney disease or end stage renal disease (principal); E11.22 Type 2 diabetes mellitus with diabetic chronic kidney disease; N18.6 End stage renal disease; Z99.2 Dependence on renal dialysis; Z79.899 Other long term (current) drug therapy
CPT/HCPCS: 36415; 71045; 80053; 82962; 83880; 85025; 93005; 96372; 99291; J1815

== ENCOUNTER 2021-07-19 01:01 | Emergency (ER) | payer MEDICARE, MEDICAID ==
[~2021-07-19] VITALS: Ht 165.1 cm; Wt 73.0 kg
[2021-07-19 01:42] LABS: BASOPHILS % 1.4 % (0.0-2.0); EOSINOPHILS % 3.3 % (0.0-5.0); HEMATOCRIT. 33.4 % (42.0-52.0); HEMOGLOBIN. 11.1 g/dL (14.0-18.0); LYMPHOCYTES % 8.9 % (20.0-50.0); MEAN CORPUSCULAR HEMOGLOBIN 31.9 pg (28.0-32.0); MEAN CORPUSCULAR VOLUME 96.3 fL (80.0-94.0); MEAN PLATELET VOLUME 8.2 fl (7.4-10.4); NEUTROPHILS % 79.4 % (40.0-76.0); PLATELET 262 x1000/uL (130-400); RED BLOOD CELL COUNT 3.47 mill/uL (4.7-6.1); RED CELL DISTRIBUTION WIDTH 16.8 % (11.6-14.6)
[2021-07-19 01:46] LABS: CHLORIDE 99 mEq/L (98-107)
[2021-07-19 03:05] VITALS: BP 155/76
== END 2021-07-19 03:40 | disposition home or self-care (01) ==
LOC: ER 01:01
DX: E11.22 Type 2 diabetes mellitus with diabetic chronic kidney disease (principal); I12.0 Hypertensive chronic kidney disease with stage 5 chronic kidney disease or end stage renal disease; N18.6 End stage renal disease; Z79.899 Other long term (current) drug therapy
CPT/HCPCS: 36415; 80053; 82962; 84484; 85025; 93005; 99284

== ENCOUNTER 2021-11-12 22:02 | Emergency (ER) | payer MEDICARE, MEDICAID ==
[~2021-11-12] VITALS: Ht 165.1 cm; Wt 76.0 kg
[2021-11-12 23:46] LABS: HEMATOCRIT. 40.9 % (42.0-52.0); MEAN CORPUSCULAR HEMOGLOBIN 29.9 pg (28.0-32.0); MEAN CORPUSCULAR VOLUME 93.9 fL (80.0-94.0); MEAN PLATELET VOLUME 8.2 fl (7.4-10.4); PLATELET 283 x1000/uL (130-400); RED BLOOD CELL COUNT 4.36 mill/uL (4.7-6.1); RED CELL DISTRIBUTION WIDTH 17.7 % (11.6-14.6)
[2021-11-12 23:49] LABS: CHLORIDE 99 mEq/L (98-107)
[2021-11-13 00:06] LABS: ETHANOL BLOOD < 10 mg/dL
[2021-11-13 01:38] VITALS: BP 141/77
[2021-11-13 05:53] LABS: PLATELET ESTIMATE NORMAL
== END 2021-11-13 01:46 | disposition home or self-care (01) ==
LOC: ER 22:02
DX: I12.0 Hypertensive chronic kidney disease with stage 5 chronic kidney disease or end stage renal disease (principal); E11.22 Type 2 diabetes mellitus with diabetic chronic kidney disease; N18.6 End stage renal disease; J81.1 Chronic pulmonary edema; I10 Essential (primary) hypertension; E11.9 Type 2 diabetes mellitus without complications
CPT/HCPCS: 36415; 71045; 80053; 80307; 80320; 80329; 82140; 82962; 84443; 85025; 99284; G0480

== ENCOUNTER 2022-05-02 17:23 | Inpatient (IN) | payer MEDICARE, MEDICAID ==
[~2022-05-02] VITALS: Ht 160 cm; Wt 65.3 kg
[2022-05-02 19:20] LABS: BASOPHILS % 0.9 % (0.0-2.0); EOSINOPHILS % 1.4 % (0.0-5.0); HEMATOCRIT. 28.4 % (42.0-52.0); HEMOGLOBIN. 9.4 g/dL (14.0-18.0); LYMPHOCYTES % 7.7 % (20.0-50.0); MEAN CORPUSCULAR HEMOGLOBIN 32.2 pg (28.0-32.0); MEAN PLATELET VOLUME 8.5 fl (7.4-10.4); MONOCYTES % 10.4 % (2.0-8.0); NEUTROPHILS % 79.6 % (40.0-76.0); PLATELET 223 x1000/uL (130-400); RED BLOOD CELL COUNT 2.93 mill/uL (4.7-6.1); RED CELL DISTRIBUTION WIDTH 16.7 % (11.6-14.6)
[2022-05-02 19:30] LABS: INR 1.2; PROTHROMBIN TIME 12.4 sec (9.6-11.0)
[2022-05-02 19:32] LABS: CHLORIDE 92 mEq/L (98-107)
[2022-05-02] MEDS ORDERED: IPRATROPIUM/ALBUTEROL 0.5-3(2.5)MG/3ML NEB HHN PRN (21:15)
[2022-05-02] MEDS ORDERED: ACETAMINOPHEN 325MG TABLET PO PRN ×2 (21:15)
[2022-05-02] MEDS ORDERED: CLONIDINE 0.1MG TABLET PO PRN ×2 (21:15→22:45)
[2022-05-02] MEDS ORDERED: ONDANSETRON HCL 4MG/2ML INJ IV PRN (21:15)
[2022-05-02] MEDS ORDERED: DOCUSATE SODIUM 100MG CAPSULE PO PRN (21:15)
[2022-05-02] MEDS ORDERED: DIPHENHYDRAMINE 50MG/ML VIAL IV PRN (21:15)
[2022-05-02] MEDS ORDERED: GUAIFENESIN 200MG/10ML SUGAR FREE UDC PO PRN (21:15)
[2022-05-02] MEDS ORDERED: DEXTROSE 50% WATER 50ML SYRINGE IV PRN (21:15)
[2022-05-02] MEDS ORDERED: MAGNESIUM/ALUMINUM HYDROXIDE/SIMETHICONE 30ML UDC PO PRN (21:15)
[2022-05-02] MEDS: POLYVINYL ALCOHOL OPHTH DROPS 15ML BOTHEYE PRN (23:57)
[2022-05-03] VITALS (9 sets, daily range): BP systolic 139–190; BP diastolic 55–70
[2022-05-03] MEDS: LOSARTAN POTASSIUM 25 MG TABLET PO SCH ×2 (01:11→09:27)
[2022-05-03] MEDS: HYDRALAZINE HCL 100MG TABLET PO SCH ×3 (01:12→14:09)
[2022-05-03] MEDS: AMLODIPINE 10MG TABLET PO SCH ×2 (01:12→09:27)
[2022-05-03] MEDS: BLOOD SUGAR DIAGNOSTIC STRIP TEST SCH ×4 (06:08→21:38)
[2022-05-03] MEDS: PANTOPRAZOLE 40MG DR TABLET PO SCH (06:34)
[2022-05-03] MEDS: POLYVINYL ALCOHOL OPHTH DROPS 15ML BOTHEYE PRN ×4 (06:36→17:47)
[2022-05-03] MEDS: INSULIN LISPRO 100 UNITS/ML SUBCUT SCH ×4 (08:08→21:46)
[2022-05-03] MEDS: ENOXAPARIN 30MG/0.3ML SYR SUBCUT SCH (09:26)
[2022-05-03] MEDS: LABETALOL HCL 100MG TABLET PO SCH ×2 (09:27→21:37)
[2022-05-03 16:30] LABS: HEMATOCRIT. 29.6 % (42.0-52.0); HEMOGLOBIN. 10.1 g/dL (14.0-18.0); MEAN CORPUSCULAR HEMOGLOBIN 32.8 pg (28.0-32.0); MEAN CORPUSCULAR VOLUME 96.3 fL (80.0-94.0); MEAN PLATELET VOLUME 8.8 fl (7.4-10.4); PLATELET 240 x1000/uL (130-400); RED BLOOD CELL COUNT 3.08 mill/uL (4.7-6.1); RED CELL DISTRIBUTION WIDTH 16.8 % (11.6-14.6)
[2022-05-03 16:54] LABS: T4 FREE 1.09 ng/dL (0.76-1.46)
[2022-05-03 17:04] LABS: CREATINE KINASE MB FRACTION 2.4 ng/mL (0.5-3.6)
[2022-05-03 17:06] LABS: FERRITIN 1097 ng/mL (22-322)
[2022-05-03 17:16] LABS: HEPATITIS B SURFACE ANTIGEN NEGATIVE
[2022-05-03 17:37] LABS: VITAMIN B12 SERUM > 2000.0 pg/mL (211-911)
[2022-05-03 17:51] LABS: PLATELET ESTIMATE NORMAL
[2022-05-03] MEDS: TOBRAMYCIN/DEXAMETH 0.1/0.3% OPHTH SUSP 2.5ML BOTHEYE SCH (18:01)
[2022-05-03 18:23] LABS: CHLORIDE 88 mEq/L (98-107)
[2022-05-03 18:39] LABS: HDL CHOLESTEROL 63 mg/dL (40-59); LDL CHOLESTEROL 95 mg/dL (5-100); PHOSPHORUS 2.8 mg/dL (2.5-4.9); TOTAL IRON BINDING CAPACITY 174 ug/dL (250-450)
[2022-05-04 00:01] VITALS: BP 151/54
[2022-05-04] MEDS: TOBRAMYCIN/DEXAMETH 0.1/0.3% OPHTH SUSP 2.5ML BOTHEYE SCH ×2 (00:10→05:09)
[2022-05-04] MEDS: HYDRALAZINE HCL 100MG TABLET PO SCH ×2 (00:10→05:09)
[2022-05-04 04:49] VITALS: BP 134/53
[2022-05-04] MEDS: BLOOD SUGAR DIAGNOSTIC STRIP TEST SCH (07:34)
[2022-05-04] MEDS: PANTOPRAZOLE 40MG DR TABLET PO SCH (07:53)
[2022-05-04] MEDS: INSULIN LISPRO 100 UNITS/ML SUBCUT SCH (07:56)
[2022-05-04] MEDS: ENOXAPARIN 30MG/0.3ML SYR SUBCUT SCH (07:57)
[2022-05-04 08:00] VITALS: BP 153/60
[2022-05-04] MEDS: LABETALOL HCL 100MG TABLET PO SCH (08:35)
[2022-05-04] MEDS: POLYVINYL ALCOHOL OPHTH DROPS 15ML BOTHEYE PRN (08:35)
[2022-05-04] MEDS: AMLODIPINE 10MG TABLET PO SCH (08:35)
[2022-05-04] MEDS: LOSARTAN POTASSIUM 25 MG TABLET PO SCH (08:35)
[2022-05-04] MEDS ORDERED: TOBRAD BOTHEYE (09:57)
[2022-05-04] MEDS ORDERED: PANT40TA51 PO (09:57)
[2022-05-04 10:04] VITALS: BP 153/60
== END 2022-05-04 11:05 | disposition home or self-care (01) | DRG 291 ==
LOC: ER 17:35 → EDBEDREQ 18:49 → 7WST 19:50 → EDBEDREQ 20:04 → ENRESERV 20:18
PROVIDERS: ADMIT Internal Medicine; ATTEND Internal Medicine
PROC: 5A1D70Z Performance of Urinary Filtration, Intermittent, Less than 6 Hours Per Day (ICD-10-PCS; principal; 2022-05-03)
DX: I13.2 Hypertensive heart and chronic kidney disease with heart failure and with stage 5 chronic kidney disease, or end stage renal disease (principal); I50.33 Acute on chronic diastolic (congestive) heart failure; J96.01 Acute respiratory failure with hypoxia; N18.6 End stage renal disease; K85.90 Acute pancreatitis without necrosis or infection, unspecified; E44.1 Mild protein-calorie malnutrition; Z20.822 Contact with and (suspected) exposure to COVID-19; D51.8 Other vitamin B12 deficiency anemias; D63.1 Anemia in chronic kidney disease; E11.65 Type 2 diabetes mellitus with hyperglycemia; E11.22 Type 2 diabetes mellitus with diabetic chronic kidney disease; D53.9 Nutritional anemia, unspecified; I48.0 Paroxysmal atrial fibrillation; E83.39 Other disorders of phosphorus metabolism; E11.319 Type 2 diabetes mellitus with unspecified diabetic retinopathy without macular edema; E11.40 Type 2 diabetes mellitus with diabetic neuropathy, unspecified; E11.51 Type 2 diabetes mellitus with diabetic peripheral angiopathy without gangrene; E87.8 Other disorders of electrolyte and fluid balance, not elsewhere classified; E78.5 Hyperlipidemia, unspecified; E88.09 Other disorders of plasma-protein metabolism, not elsewhere classified; H10.9 Unspecified conjunctivitis; I44.7 Left bundle-branch block, unspecified; Z99.2 Dependence on renal dialysis; Z79.4 Long term (current) use of insulin; Z79.899 Other long term (current) drug therapy; Z82.49 Family history of ischemic heart disease and other diseases of the circulatory system; Z91.15 Patient's noncompliance with renal dialysis
CPT/HCPCS: 36415; 71045; 80053; 80061; 82550; 82553; 82607; 82728; 82746; 82962; 83036; 83540; 83550; 83735; 83880; 84100; 84439; 84443; 84484; 85025; 85379; 86705; 86709; 86803; 87340; 87426; 90935; 93005; 93306; 99285; C9803; J1650; J1815

== ENCOUNTER 2022-05-19 14:07 | Inpatient (IN) | payer MEDICARE, MEDICAID ==
[~2022-05-19] VITALS: Ht 157.5 cm; Wt 66.3 kg
[~2022-05-19 14:07] MED LIST changes: -LANS30CA52 MT; -LANS30CA55 MT; +PANT40TA51 PO; +TOBRAD BOTHEYE
[2022-05-19 16:04] LABS: HEMATOCRIT. 29.2 % (42.0-52.0); HEMOGLOBIN. 9.7 g/dL (14.0-18.0); MEAN CORPUSCULAR HEMOGLOBIN 32.5 pg (28.0-32.0); MEAN CORPUSCULAR VOLUME 97.7 fL (80.0-94.0); MEAN PLATELET VOLUME 8.2 fl (7.4-10.4); PLATELET 212 x1000/uL (130-400); RED BLOOD CELL COUNT 2.99 mill/uL (4.7-6.1); RED CELL DISTRIBUTION WIDTH 16.1 % (11.6-14.6)
[2022-05-19 16:12] LABS: CHLORIDE 95 mEq/L (98-107)
[2022-05-19 16:23] LABS: INR 1.1; PROTHROMBIN TIME 11.8 sec (9.6-11.0)
[2022-05-19 22:00] VITALS: BP 189/78
[2022-05-19] MEDS ORDERED: GUAIFENESIN 200MG/10ML SUGAR FREE UDC PO PRN (23:30)
[2022-05-19] MEDS ORDERED: ACETAMINOPHEN 325MG TABLET PO PRN (23:30)
[2022-05-19] MEDS ORDERED: DOCUSATE SODIUM 100MG CAPSULE PO PRN (23:30)
[2022-05-19] MEDS ORDERED: ONDANSETRON HCL 4MG/2ML INJ IV PRN (23:30)
[2022-05-19] MEDS ORDERED: MAGNESIUM/ALUMINUM HYDROXIDE/SIMETHICONE 30ML UDC PO PRN (23:30)
[2022-05-19] MEDS ORDERED: NALOXONE HCL 0.4MG/ML VIAL IV PRN (23:45)
[2022-05-20] VITALS (14 sets, daily range): BP systolic 115–198; BP diastolic 63–98
[2022-05-20] MEDS: TRAMADOL 50MG TABLET PO PRN (00:01)
[2022-05-20 00:07] LABS: PLATELET ESTIMATE NORMAL
[2022-05-20] MEDS: CLONIDINE 0.1MG TABLET PO PRN ×2 (05:30)
[2022-05-20] MEDS ORDERED: INSULIN REGULAR (HUMULIN R) 300UNITS/3ML VIAL SUBCUT NR (05:45)
[2022-05-20] MEDS: ENOXAPARIN 30MG/0.3ML SYR SUBCUT SCH (09:37)
[2022-05-20] MEDS: AMLODIPINE 10MG TABLET PO SCH ×2 (09:37)
[2022-05-20] MEDS: HYDRALAZINE HCL 100MG TABLET PO SCH ×2 (13:00→17:00)
[2022-05-20] MEDS: SEVELAMER CARBONATE 800 MG TABLET PO SCH ×2 (13:16→17:53)
[2022-05-20] MEDS: PANTOPRAZOLE 40MG DR TABLET PO SCH (13:16)
[2022-05-20] MEDS: TOBRAMYCIN/DEXAMETH 0.1/0.3% OPHTH SUSP 2.5ML BOTHEYE SCH ×3 (13:17→18:15)
[2022-05-20] MEDS ORDERED: DEXTROSE 50% WATER 50ML SYRINGE IV PRN (16:00)
[2022-05-20] MEDS: BLOOD SUGAR DIAGNOSTIC STRIP TEST SCH ×2 (16:50→21:12)
[2022-05-20] MEDS: INSULIN LISPRO 100 UNITS/ML SUBCUT SCH ×2 (17:55→21:10)
[2022-05-20] MEDS: INS NPH/REG HM 70-30 100 UNITS/ML 10ML VIAL (HUMULIN 70-30) SUBCUT SCH ×2 (18:03→18:15)
[2022-05-20] MEDS ORDERED: EPOETIN ALFA-EPBX 4,000 UNIT/ML VIAL SUBCUT SCH (21:00)
[2022-05-20] MEDS: LABETALOL HCL 100MG TABLET PO SCH (22:17)
[2022-05-21] VITALS: BP 142/62
[2022-05-21 04:00] VITALS: BP 121/68
[2022-05-21] MEDS: TOBRAMYCIN/DEXAMETH 0.1/0.3% OPHTH SUSP 2.5ML BOTHEYE SCH ×4 (06:51→17:37)
[2022-05-21] MEDS: PANTOPRAZOLE 40MG DR TABLET PO SCH (06:51)
[2022-05-21] MEDS: SEVELAMER CARBONATE 800 MG TABLET PO SCH ×3 (06:51→17:36)
[2022-05-21] MEDS: BLOOD SUGAR DIAGNOSTIC STRIP TEST SCH ×4 (07:03→20:48)
[2022-05-21 08:00] VITALS: BP 169/66
[2022-05-21] MEDS: INSULIN LISPRO 100 UNITS/ML SUBCUT SCH ×4 (09:00→20:48)
[2022-05-21] MEDS ORDERED: FAMOTIDINE 20MG TABLET PO SCH (09:00)
[2022-05-21] MEDS: AMLODIPINE 10MG TABLET PO SCH (09:48)
[2022-05-21] MEDS: HYDRALAZINE HCL 100MG TABLET PO SCH ×3 (09:58→17:37)
[2022-05-21] MEDS: LABETALOL HCL 100MG TABLET PO SCH ×2 (09:59→20:53)
[2022-05-21] MEDS: ENOXAPARIN 30MG/0.3ML SYR SUBCUT SCH (10:00)
[2022-05-21] MEDS: INS NPH/REG HM 70-30 100 UNITS/ML 10ML VIAL (HUMULIN 70-30) SUBCUT SCH (10:04)
[2022-05-21 12:00] VITALS: BP 182/75
[2022-05-21 16:00] VITALS: BP 146/61
[2022-05-21 16:51] LABS: HEMATOCRIT 26.7 % (42.0-52.0); HEMOGLOBIN 8.8 g/dL (14.0-18.0); MEAN CORPUSCULAR HEMOGLOBIN 32.3 pg (28.0-32.0); PLATELET 203 x1000/uL (130-400); RED BLOOD CELL COUNT 2.72 mill/uL (4.7-6.1); RED CELL DISTRIBUTION WIDTH 15.6 % (11.6-14.6)
[2022-05-21 18:05] LABS: HEPATITIS B SURFACE ANTIGEN NEGATIVE
[2022-05-21] MEDS ORDERED: INS NPH/REG HM 70-30 100 UNITS/ML 10ML VIAL (HUMULIN 70-30) SUBCUT SCH (18:15)
[2022-05-21 20:10] VITALS: BP 148/90
[2022-05-21] MEDS: TRAMADOL 50MG TABLET PO PRN (21:00)
[2022-05-22] VITALS (16 sets, daily range): BP systolic 142–159; BP diastolic 61–79
[2022-05-22] MEDS: TOBRAMYCIN/DEXAMETH 0.1/0.3% OPHTH SUSP 2.5ML BOTHEYE SCH ×2 (00:11→06:00)
[2022-05-22] MEDS: BLOOD SUGAR DIAGNOSTIC STRIP TEST SCH (07:01)
[2022-05-22] MEDS: SEVELAMER CARBONATE 800 MG TABLET PO SCH (07:02)
[2022-05-22] MEDS: INSULIN LISPRO 100 UNITS/ML SUBCUT SCH (07:34)
[2022-05-22] MEDS ORDERED: FAMOTIDINE 20MG TABLET PO SCH (09:00)
== END 2022-05-22 09:40 | disposition home or self-care (01) | DRG 637 ==
LOC: ER 14:07 → EDBEDREQ 17:09 → EDBEDREQTM 17:09 → 3WST 17:53
PROVIDERS: ADMIT Hospitalist; ATTEND Hospitalist
PROC: 5A1D70Z Performance of Urinary Filtration, Intermittent, Less than 6 Hours Per Day (ICD-10-PCS; principal; 2022-05-20)
PROC: 5A1D70Z Performance of Urinary Filtration, Intermittent, Less than 6 Hours Per Day (ICD-10-PCS; 2022-05-22)
DX: E11.649 Type 2 diabetes mellitus with hypoglycemia without coma (principal); I50.33 Acute on chronic diastolic (congestive) heart failure; I13.2 Hypertensive heart and chronic kidney disease with heart failure and with stage 5 chronic kidney disease, or end stage renal disease; E46 Unspecified protein-calorie malnutrition; N18.6 End stage renal disease; R04.0 Epistaxis; D63.1 Anemia in chronic kidney disease; E11.22 Type 2 diabetes mellitus with diabetic chronic kidney disease; E11.40 Type 2 diabetes mellitus with diabetic neuropathy, unspecified; E11.51 Type 2 diabetes mellitus with diabetic peripheral angiopathy without gangrene; E11.319 Type 2 diabetes mellitus with unspecified diabetic retinopathy without macular edema; E11.65 Type 2 diabetes mellitus with hyperglycemia; I48.91 Unspecified atrial fibrillation; Z20.822 Contact with and (suspected) exposure to COVID-19; Z82.49 Family history of ischemic heart disease and other diseases of the circulatory system; Z79.899 Other long term (current) drug therapy; Z99.2 Dependence on renal dialysis; Z91.15 Patient's noncompliance with renal dialysis; Z68.26 Body mass index [BMI] 26.0-26.9, adult
CPT/HCPCS: 36415; 71045; 80048; 80053; 82962; 83036; 84484; 85025; 85027; 86705; 86709; 86803; 87340; 87426; 90935; 93970; 99285; C9803; J0885; J1650; J1815

== ENCOUNTER 2022-06-02 14:40 | Emergency (ER) | payer MEDICARE, MEDICAID ==
[~2022-06-02] VITALS: Ht 165.1 cm; Wt 68.0 kg
[2022-06-02 14:44] VITALS: BP 181/66
[2022-06-02] MEDS ORDERED: ACETAMINOPHEN 325MG TABLET PO ONE (15:45)
== END 2022-06-02 16:44 | disposition left against medical advice (07) ==
LOC: ER 14:40
DX: R09.81 Nasal congestion (principal); E11.22 Type 2 diabetes mellitus with diabetic chronic kidney disease; I12.0 Hypertensive chronic kidney disease with stage 5 chronic kidney disease or end stage renal disease; N18.6 End stage renal disease; Z99.2 Dependence on renal dialysis; I48.91 Unspecified atrial fibrillation; Z79.01 Long term (current) use of anticoagulants; Z79.4 Long term (current) use of insulin
CPT/HCPCS: 93005; 99283

== ENCOUNTER 2022-06-04 13:30 | Inpatient (IN) | payer MEDICARE, MEDICAID ==
[~2022-06-04] VITALS: Ht 167.6 cm; Wt 79.8 kg
[2022-06-04 14:47] LABS: HEMATOCRIT. 26.5 % (42.0-52.0); HEMOGLOBIN. 8.8 g/dL (14.0-18.0); MEAN CORPUSCULAR HEMOGLOBIN 31.9 pg (28.0-32.0); MEAN CORPUSCULAR VOLUME 96.6 fL (80.0-94.0); PLATELET 407 x1000/uL (130-400); RED BLOOD CELL COUNT 2.74 mill/uL (4.7-6.1); RED CELL DISTRIBUTION WIDTH 15.5 % (11.6-14.6)
[2022-06-04 17:34] LABS: PLATELET ESTIMATE INCREASED
[2022-06-04 20:33] LABS: CHLORIDE 95 mEq/L (98-107)
[2022-06-04] MEDS ORDERED: ACETAMINOPHEN 325MG TABLET PO ONE (20:45)
[2022-06-04] MEDS ORDERED: THROAT LOZENGES-BENZOCAINE/MENTH/CETYLPYRD CL LOZENGES MM PRN (20:45)
[2022-06-04] MEDS ORDERED: MAGNESIUM/ALUMINUM HYDROXIDE/SIMETHICONE 30ML UDC PO PRN (22:45)
[2022-06-04] MEDS ORDERED: DOCUSATE SODIUM 100MG CAPSULE PO PRN (22:45)
[2022-06-04] MEDS ORDERED: ACETAMINOPHEN 325MG TABLET PO PRN ×2 (22:45)
[2022-06-04] MEDS ORDERED: ONDANSETRON HCL 4MG/2ML INJ IV PRN (22:45)
[2022-06-04] MEDS ORDERED: GUAIFENESIN 200MG/10ML SUGAR FREE UDC PO PRN (22:45)
[2022-06-04] MEDS ORDERED: CLONIDINE 0.1MG TABLET PO PRN (22:45)
[2022-06-04] MEDS ORDERED: HYDROCODONE/ACETAMINOPHEN 5/325MG TABLET PO PRN (22:45)
[2022-06-04] MEDS ORDERED: IPRATROPIUM/ALBUTEROL 0.5-3(2.5)MG/3ML NEB HHN PRN (22:45)
[2022-06-04] MEDS ORDERED: NALOXONE HCL 0.4MG/ML VIAL IV PRN (23:45)
[2022-06-05] VITALS (14 sets, daily range): BP systolic 103–179; BP diastolic 50–85
[2022-06-05] MEDS ORDERED: HYDROCODONE/ACETAMINOPHEN 5/325MG TABLET PO PRN (02:45)
[2022-06-05] MEDS ORDERED: DEXTROSE 50% WATER 50ML SYRINGE IV PRN (04:45)
[2022-06-05] MEDS: TOBRAMYCIN/DEXAMETH 0.1/0.3% OPHTH SUSP 2.5ML BOTHEYE SCH ×2 (06:00→11:47)
[2022-06-05] MEDS: BLOOD SUGAR DIAGNOSTIC STRIP TEST SCH ×4 (07:11→21:01)
[2022-06-05] MEDS: PANTOPRAZOLE 40MG DR TABLET PO SCH (07:16)
[2022-06-05] MEDS: INSULIN LISPRO 100 UNITS/ML SUBCUT SCH ×4 (07:18→21:00)
[2022-06-05] MEDS ORDERED: LABETALOL HCL 100MG TABLET PO SCH (09:00)
[2022-06-05] MEDS: ENOXAPARIN 30MG/0.3ML SYR SUBCUT SCH (09:30)
[2022-06-05] MEDS: LOSARTAN POTASSIUM 100 MG TABLET PO SCH (09:31)
[2022-06-05] MEDS: CALCIUM CARBONATE 500MG TABLET CHEW PO SCH ×4 (09:31→20:57)
[2022-06-05] MEDS: SEVELAMER CARBONATE 800 MG TABLET PO SCH ×3 (09:32→18:09)
[2022-06-05] MEDS: AMLODIPINE 10MG TABLET PO SCH (09:32)
[2022-06-05] MEDS: HYDRALAZINE HCL 100MG TABLET PO SCH ×3 (09:38→18:09)
[2022-06-05] MEDS: THROAT LOZENGES-BENZOCAINE/MENTH/CETYLPYRD CL LOZENGES MM PRN ×2 (11:47→18:08)
[2022-06-05 13:59] LABS: HEMATOCRIT. 27.2 % (42.0-52.0); HEMOGLOBIN. 8.9 g/dL (14.0-18.0); MEAN CORPUSCULAR HEMOGLOBIN 31.6 pg (28.0-32.0); MEAN CORPUSCULAR VOLUME 96.3 fL (80.0-94.0); MEAN PLATELET VOLUME 8.3 fl (7.4-10.4); PLATELET 412 x1000/uL (130-400); RED BLOOD CELL COUNT 2.82 mill/uL (4.7-6.1); RED CELL DISTRIBUTION WIDTH 15.4 % (11.6-14.6)
[2022-06-05 14:22] LABS: PLATELET ESTIMATE INCREASED
[2022-06-05 15:11] LABS: CREATINE KINASE MB FRACTION 1.3 ng/mL (0.5-3.6)
[2022-06-05 15:24] LABS: HDL CHOLESTEROL 37 mg/dL (40-59); LDL CHOLESTEROL 98 mg/dL (5-100); T4 FREE 1.26 ng/dL (0.76-1.46)
[2022-06-05 16:04] LABS: CHLORIDE 96 mEq/L (98-107); PHOSPHORUS 1.6 mg/dL (2.5-4.9)
[2022-06-05] MEDS ORDERED: PIPERACILLIN/TAZOBACTAM 3.375GM/50ML PREMIX IV ONE (17:45)
[2022-06-05] MEDS ORDERED: POTASSIUM CHLORIDE 20MEQ/PACKET PO NR (17:45)
[2022-06-05] MEDS ORDERED: VANCOMYCIN 1G PREMIX 200 ML IV SCH (17:45)
[2022-06-05 17:49] LABS: HEPATITIS B SURFACE ANTIGEN NEGATIVE
[2022-06-05] MEDS ORDERED: VANCOMYCIN 1.25GM PMX (XELLIA) 250 ML IV NR (19:00)
[2022-06-05] MEDS ORDERED: POTASSIUM PHOS,M-BASIC-D-BASIC 20 MMOL in DEXT 5% WATER 243.3333 ML IV NR (20:00)
[2022-06-05] MEDS: PIPERACILLIN/TAZOBACTAM 3.375 G in DEXTROSE 5% WATER 50 ML IV SCH (20:57)
[2022-06-05] MEDS: EPOETIN ALFA-EPBX 4,000 UNIT/ML VIAL SUBCUT SCH ×2 (21:00→21:01)
[2022-06-06] VITALS (11 sets, daily range): BP systolic 100–176; BP diastolic 46–73
[2022-06-06] MEDS: THROAT LOZENGES-BENZOCAINE/MENTH/CETYLPYRD CL LOZENGES MM PRN ×4 (00:21→18:12)
[2022-06-06] MEDS: BLOOD SUGAR DIAGNOSTIC STRIP TEST SCH ×7 (06:38→21:13)
[2022-06-06] MEDS: PANTOPRAZOLE 40MG DR TABLET PO SCH (06:39)
[2022-06-06] MEDS: INSULIN LISPRO 100 UNITS/ML SUBCUT SCH ×6 (06:40→21:00)
[2022-06-06] MEDS ORDERED: DEXTROSE 50% WATER 50ML SYRINGE IV PRN (08:00)
[2022-06-06] MEDS: PIPERACILLIN/TAZOBACTAM 3.375 G in DEXTROSE 5% WATER 50 ML IV SCH ×2 (08:24→21:13)
[2022-06-06] MEDS: HYDRALAZINE HCL 100MG TABLET PO SCH ×3 (08:26→21:14)
[2022-06-06] MEDS: SEVELAMER CARBONATE 800 MG TABLET PO SCH ×3 (08:26→21:14)
[2022-06-06] MEDS: AMLODIPINE 10MG TABLET PO SCH (08:26)
[2022-06-06] MEDS: ENOXAPARIN 30MG/0.3ML SYR SUBCUT SCH (08:26)
[2022-06-06] MEDS: LOSARTAN POTASSIUM 100 MG TABLET PO SCH (08:26)
[2022-06-06] MEDS: CALCIUM CARBONATE 500MG TABLET CHEW PO SCH ×4 (08:26→22:03)
[2022-06-06] MEDS: OFLOXACIN OTIC DROPS/10 ML BOTTLE LEFT EAR SCH ×2 (09:40→21:13)
[2022-06-06 09:58] LABS: HEMATOCRIT. 29.2 % (42.0-52.0); HEMOGLOBIN. 9.3 g/dL (14.0-18.0); MEAN CORPUSCULAR HEMOGLOBIN 31.3 pg (28.0-32.0); MEAN CORPUSCULAR VOLUME 97.9 fL (80.0-94.0); MEAN PLATELET VOLUME 8.7 fl (7.4-10.4); PLATELET 454 x1000/uL (130-400); RED BLOOD CELL COUNT 2.98 mill/uL (4.7-6.1); RED CELL DISTRIBUTION WIDTH 15.6 % (11.6-14.6)
[2022-06-06] MEDS ORDERED: INSULIN GLARGINE 100 UNITS/ML SUBCUT SCH ×2 (10:00→22:00)
[2022-06-06 10:09] LABS: PHOSPHORUS 4.8 mg/dL (2.5-4.9)
[2022-06-07] VITALS: BP 140/80
[2022-06-07] MEDS: THROAT LOZENGES-BENZOCAINE/MENTH/CETYLPYRD CL LOZENGES MM PRN ×2 (00:33→06:19)
[2022-06-07 04:00] VITALS: BP 156/59
[2022-06-07] MEDS: PANTOPRAZOLE 40MG DR TABLET PO SCH (06:18)
[2022-06-07] MEDS: BLOOD SUGAR DIAGNOSTIC STRIP TEST SCH ×4 (06:18→12:24)
[2022-06-07] MEDS: INSULIN LISPRO 100 UNITS/ML SUBCUT SCH ×3 (06:18→13:17)
[2022-06-07 08:00] VITALS: BP 137/66
[2022-06-07] MEDS: HYDRALAZINE HCL 100MG TABLET PO SCH ×2 (08:38→12:37)
[2022-06-07] MEDS: CALCIUM CARBONATE 500MG TABLET CHEW PO SCH ×2 (08:38→12:36)
[2022-06-07] MEDS: ENOXAPARIN 30MG/0.3ML SYR SUBCUT SCH (08:38)
[2022-06-07] MEDS: SEVELAMER CARBONATE 800 MG TABLET PO SCH ×2 (08:38→12:36)
[2022-06-07] MEDS: LOSARTAN POTASSIUM 100 MG TABLET PO SCH (08:38)
[2022-06-07] MEDS: OFLOXACIN OTIC DROPS/10 ML BOTTLE LEFT EAR SCH (08:39)
[2022-06-07] MEDS: AMLODIPINE 10MG TABLET PO SCH (08:39)
[2022-06-07] MEDS: PIPERACILLIN/TAZOBACTAM 3.375 G in DEXTROSE 5% WATER 50 ML IV SCH (08:40)
[2022-06-07 10:47] LABS: PLATELET ESTIMATE INCREASED
[2022-06-07 11:13] VITALS: BP 137/66
[2022-06-07] MEDS ORDERED: OFLO5DRO4 LEFT EAR (11:39)
[2022-06-07] MEDS ORDERED: AMOX1TAB16 MT (11:39)
[2022-06-07 12:00] VITALS: BP 141/63
[2022-06-08] MEDS ORDERED: FAMOTIDINE 20MG TABLET PO SCH (07:10)
== END 2022-06-07 13:40 | disposition home health service (06) | DRG 291 ==
LOC: ER 13:30 → MICUSO 19:45 → EDBEDREQ 19:55 → SUPCPDRO 21:53 → EDBEDREQ 22:13 → 8WST 06-05 10:21
PROVIDERS: ADMIT Internal Medicine; ATTEND Internal Medicine
PROC: 5A1D70Z Performance of Urinary Filtration, Intermittent, Less than 6 Hours Per Day (ICD-10-PCS; principal; 2022-06-05)
PROC: 5A1D70Z Performance of Urinary Filtration, Intermittent, Less than 6 Hours Per Day (ICD-10-PCS; 2022-06-06)
DX: I13.2 Hypertensive heart and chronic kidney disease with heart failure and with stage 5 chronic kidney disease, or end stage renal disease (principal); I50.33 Acute on chronic diastolic (congestive) heart failure; N18.6 End stage renal disease; E87.1 Hypo-osmolality and hyponatremia; E46 Unspecified protein-calorie malnutrition; E11.22 Type 2 diabetes mellitus with diabetic chronic kidney disease; D53.9 Nutritional anemia, unspecified; Z20.822 Contact with and (suspected) exposure to COVID-19; I48.0 Paroxysmal atrial fibrillation; E87.6 Hypokalemia; J06.9 Acute upper respiratory infection, unspecified; E83.39 Other disorders of phosphorus metabolism; E11.319 Type 2 diabetes mellitus with unspecified diabetic retinopathy without macular edema; E11.40 Type 2 diabetes mellitus with diabetic neuropathy, unspecified; E11.51 Type 2 diabetes mellitus with diabetic peripheral angiopathy without gangrene; H93.12 Tinnitus, left ear; D63.8 Anemia in other chronic diseases classified elsewhere; E11.65 Type 2 diabetes mellitus with hyperglycemia; Z99.2 Dependence on renal dialysis; Z91.15 Patient's noncompliance with renal dialysis; Z79.899 Other long term (current) drug therapy; Z68.28 Body mass index [BMI] 28.0-28.9, adult; Z82.49 Family history of ischemic heart disease and other diseases of the circulatory system; H72.92 Unspecified perforation of tympanic membrane, left ear
CPT/HCPCS: 36415; 71045; 80048; 80053; 80061; 80202; 82550; 82553; 82962; 83036; 83605; 83735; 83880; 84100; 84145; 84439; 84443; 84484; 85025; 86705; 86709; 86803; 87340; 87420; 87426; 87804; 90935; 93005; 99285; C1893; J0885; J1650; J1815; J2543; J3370; J3490; J7060

== ENCOUNTER 2022-06-29 00:23 | Inpatient (IN) | payer MEDICARE, MEDICAID ==
[~2022-06-29] VITALS: Ht 157.5 cm; Wt 65.9 kg
[2022-06-29] VITALS (13 sets, daily range): BP systolic 127–207; BP diastolic 52–101
[~2022-06-29 00:23] MED LIST changes: +AMOX1TAB16 MT; +OFLO5DRO4 LEFT EAR; -SODI454P4 PO
[2022-06-29] MEDS ORDERED: DEXTROSE 50% WATER 50ML SYRINGE IV ONE ×3 (00:33→06:00)
[2022-06-29] MEDS ORDERED: SODIUM CHLORIDE 0.9% 1,000 ML IV ONE (00:45)
[2022-06-29] MEDS ORDERED: LEVETIRACETAM 500MG PREMIX 100 ML IV ONE (00:45)
[2022-06-29 01:14] LABS: HEMATOCRIT. 31.1 % (42.0-52.0); HEMOGLOBIN. 10.2 g/dL (14.0-18.0); MEAN CORPUSCULAR HEMOGLOBIN 31.7 pg (28.0-32.0); MEAN CORPUSCULAR VOLUME 96.4 fL (80.0-94.0); MEAN PLATELET VOLUME 9.1 fl (7.4-10.4); PLATELET 282 x1000/uL (130-400); RED BLOOD CELL COUNT 3.22 mill/uL (4.7-6.1); RED CELL DISTRIBUTION WIDTH 15.8 % (11.6-14.6)
[2022-06-29 01:23] LABS: CHLORIDE 90 mEq/L (98-107)
[2022-06-29 01:41] LABS: ETHANOL BLOOD < 10 mg/dL
[2022-06-29 02:26] LABS: PLATELET ESTIMATE NORMAL
[2022-06-29] MEDS ORDERED: LORAZEPAM 1MG TABLET PO ONE (04:45)
[2022-06-29] MEDS ORDERED: CLONIDINE 0.1MG TABLET PO PRN (10:00)
[2022-06-29] MEDS ORDERED: VANCOMYCIN 1G PREMIX 200 ML IV SCH (10:00)
[2022-06-29] MEDS ORDERED: ACETAMINOPHEN 325MG TABLET PO PRN (10:00)
[2022-06-29] MEDS ORDERED: ONDANSETRON HCL 4MG/2ML INJ IV PRN (10:00)
[2022-06-29] MEDS ORDERED: ENOXAPARIN 40MG/0.4ML SYR SUBCUT SCH (10:00)
[2022-06-29] MEDS: AMLODIPINE 10MG TABLET PO SCH (10:45)
[2022-06-29] MEDS: LABETALOL HCL 100MG TABLET PO SCH ×2 (10:45→20:59)
[2022-06-29] MEDS: LOSARTAN POTASSIUM 50 MG TABLET PO SCH (10:45)
[2022-06-29] MEDS: PANTOPRAZOLE SODIUM 40 MG/VIAL IV SCH (10:45)
[2022-06-29] MEDS ORDERED: VANCOMYCIN 1500MG in DEXTROSE 5% WATER 250ML IV SCH (12:00)
[2022-06-29] MEDS: IPRATROPIUM/ALBUTEROL 0.5-3(2.5)MG/3ML NEB HHN SCH ×3 (12:02→20:33)
[2022-06-29] MEDS: HYDRALAZINE HCL 100MG TABLET PO SCH ×2 (13:00→16:23)
[2022-06-29] MEDS ORDERED: DEXTROSE 50% WATER 50ML SYRINGE IV PRN (13:15)
[2022-06-29] MEDS: SEVELAMER CARBONATE 800 MG TABLET PO SCH ×2 (13:34→13:45)
[2022-06-29] MEDS: INSULIN LISPRO 100 UNITS/ML SUBCUT SCH ×3 (13:47→21:00)
[2022-06-29] MEDS ORDERED: LORAZEPAM 2MG/ML CPJ IV PRN (15:30)
[2022-06-29] MEDS: BLOOD SUGAR DIAGNOSTIC STRIP TEST SCH ×2 (17:18→20:39)
[2022-06-29] MEDS: LEVETIRACETAM 500MG TABLET PO SCH (20:58)
[2022-06-29] MEDS: HEPARIN 5000 UNITS/ML VIAL SUBCUT SCH (20:59)
[2022-06-30] VITALS: BP 123/56
[2022-06-30] MEDS: IPRATROPIUM/ALBUTEROL 0.5-3(2.5)MG/3ML NEB HHN SCH (03:46)
[2022-06-30 04:00] VITALS: BP 154/55
[2022-06-30] MEDS: BLOOD SUGAR DIAGNOSTIC STRIP TEST SCH (06:05)
[2022-06-30] MEDS: SEVELAMER CARBONATE 800 MG TABLET PO SCH (06:06)
[2022-06-30] MEDS: INSULIN LISPRO 100 UNITS/ML SUBCUT SCH (06:06)
[2022-06-30] MEDS ORDERED: PANTOPRAZOLE 40MG DR TABLET PO SCH (06:40)
[2022-06-30 08:00] VITALS: BP 150/66
[2022-06-30] MEDS: LOSARTAN POTASSIUM 50 MG TABLET PO SCH (09:00)
[2022-06-30] MEDS: HYDRALAZINE HCL 100MG TABLET PO SCH (09:00)
[2022-06-30] MEDS: HEPARIN 5000 UNITS/ML VIAL SUBCUT SCH (09:00)
[2022-06-30] MEDS: LABETALOL HCL 100MG TABLET PO SCH (09:00)
[2022-06-30] MEDS: AMLODIPINE 10MG TABLET PO SCH (09:00)
[2022-06-30] MEDS: LEVETIRACETAM 500MG TABLET PO SCH (09:00)
[2022-06-30] MEDS: PANTOPRAZOLE SODIUM 40 MG/VIAL IV SCH (09:00)
[2022-06-30] MEDS ORDERED: PIPERACILLIN/TAZOBACTAM 3.375 G in DEXTROSE 5% WATER 50 ML IV SCH (15:00)
== END 2022-06-30 09:50 | disposition left against medical advice (07) | DRG 100 ==
LOC: ER 00:23 → 7EST 05:53 → EDBEDREQ 05:55
PROVIDERS: ADMIT Internal Medicine; ATTEND Internal Medicine
PROC: 5A1D70Z Performance of Urinary Filtration, Intermittent, Less than 6 Hours Per Day (ICD-10-PCS; principal; 2022-06-29)
DX: G40.909 Epilepsy, unspecified, not intractable, without status epilepticus (principal); G93.41 Metabolic encephalopathy; I50.31 Acute diastolic (congestive) heart failure; N18.6 End stage renal disease; I13.2 Hypertensive heart and chronic kidney disease with heart failure and with stage 5 chronic kidney disease, or end stage renal disease; E46 Unspecified protein-calorie malnutrition; E11.649 Type 2 diabetes mellitus with hypoglycemia without coma; I48.91 Unspecified atrial fibrillation; R09.02 Hypoxemia; E11.51 Type 2 diabetes mellitus with diabetic peripheral angiopathy without gangrene; E78.5 Hyperlipidemia, unspecified; E11.40 Type 2 diabetes mellitus with diabetic neuropathy, unspecified; Z53.29 Procedure and treatment not carried out because of patient's decision for other reasons; E11.319 Type 2 diabetes mellitus with unspecified diabetic retinopathy without macular edema; R04.0 Epistaxis; E11.22 Type 2 diabetes mellitus with diabetic chronic kidney disease; D63.8 Anemia in other chronic diseases classified elsewhere; Z91.14 Patient's other noncompliance with medication regimen; Z79.2 Long term (current) use of antibiotics; Z79.899 Other long term (current) drug therapy; Z82.49 Family history of ischemic heart disease and other diseases of the circulatory system; Z91.199 Patient's noncompliance with other medical treatment and regimen due to unspecified reason; Z68.26 Body mass index [BMI] 26.0-26.9, adult; Z99.2 Dependence on renal dialysis
CPT/HCPCS: 36415; 71045; 80053; 80320; 82140; 82962; 83605; 84443; 84484; 85025; 90935; 93005; 94640; 99291; C9113; J1644; J1815; J1953; J2405; J2543; J3370; J7030; J7060; G0480

== ENCOUNTER 2022-07-05 15:17 | Inpatient (IN) | payer MEDICARE, MEDICAID ==
[~2022-07-05] VITALS: Ht 162.6 cm; Wt 69.0 kg
[~2022-07-05 15:17] MED LIST changes: +ACET-2708 MT; +INSLIS SUBCUT; +amlodipine PO
[2022-07-05 17:29] LABS: HEMOGLOBIN. 8.6 g/dL (14.0-18.0); MEAN CORPUSCULAR HEMOGLOBIN 32.5 pg (28.0-32.0); MEAN CORPUSCULAR VOLUME 97.8 fL (80.0-94.0); MEAN PLATELET VOLUME 7.9 fl (7.4-10.4); PLATELET 286 x1000/uL (130-400); RED BLOOD CELL COUNT 2.66 mill/uL (4.7-6.1)
[2022-07-05 17:38] LABS: CHLORIDE 99 mEq/L (98-107)
[2022-07-05 18:12] LABS: PLATELET ESTIMATE NORMAL
[2022-07-06 10:00] VITALS: BP 161/93
== END 2022-07-06 10:20 | disposition left against medical advice (07) | DRG 640 ==
LOC: ER 15:33 → MICUSO 20:00
PROVIDERS: ADMIT Internal Medicine; ATTEND Internal Medicine
DX: E87.70 Fluid overload, unspecified (principal); N18.6 End stage renal disease; I12.0 Hypertensive chronic kidney disease with stage 5 chronic kidney disease or end stage renal disease; I48.91 Unspecified atrial fibrillation; Z82.49 Family history of ischemic heart disease and other diseases of the circulatory system; E11.22 Type 2 diabetes mellitus with diabetic chronic kidney disease; Z53.29 Procedure and treatment not carried out because of patient's decision for other reasons
CPT/HCPCS: 36415; 71045; 80053; 82962; 83880; 84484; 85025; 99285

== ENCOUNTER 2022-07-12 11:32 | Inpatient (IN) | payer MEDICARE, MEDICAID ==
[~2022-07-12] VITALS: Ht 152.4 cm; Wt 59.4 kg
[2022-07-12] MEDS ORDERED: DEXT 10% WATER 1,000 ML IV SCH (11:45)
[2022-07-12 12:18] LABS: CHLORIDE 96 mEq/L (98-107)
[2022-07-12 12:20] LABS: HEMATOCRIT. 26.3 % (42.0-52.0); HEMOGLOBIN. 8.8 g/dL (14.0-18.0); MEAN CORPUSCULAR HEMOGLOBIN 31.6 pg (28.0-32.0); MEAN CORPUSCULAR VOLUME 94.8 fL (80.0-94.0); MEAN PLATELET VOLUME 8.3 fl (7.4-10.4); PLATELET 320 x1000/uL (130-400); RED BLOOD CELL COUNT 2.78 mill/uL (4.7-6.1); RED CELL DISTRIBUTION WIDTH 17.1 % (11.6-14.6)
[2022-07-12] MEDS ORDERED: LEVETIRACETAM 500MG PREMIX 100 ML IV ONE (12:30)
[2022-07-12 12:50] LABS: PLATELET ESTIMATE NORMAL
[2022-07-12 12:52] LABS: INR 1.1; PROTHROMBIN TIME 12.2 sec (9.6-11.0)
[2022-07-12] MEDS ORDERED: DEXTROSE 50% WATER 50ML SYRINGE IV NR (13:15)
[2022-07-12] MEDS ORDERED: LEVETIRACETAM 500MG PREMIX 100 ML IV NR (13:30)
[2022-07-12] MEDS ORDERED: LEVETIRACETAM 500 MG in SODIUM CHLORIDE 0.9% 100 ML IV SCH (15:00)
[2022-07-12] MEDS ORDERED: LORAZEPAM 2MG/ML CPJ IV PRN (15:00)
[2022-07-12] MEDS ORDERED: ONDANSETRON HCL 4MG/2ML INJ IV PRN (15:00)
[2022-07-12] MEDS: LEVETIRACETAM 500MG PREMIX 100 ML IV SCH ×2 (15:55→22:22)
[2022-07-12 17:25] VITALS: BP 155/78
[2022-07-12 18:26] LABS: BG BASE EXCESS 4.1 mmol/L (-2.0-2.0); BG CARBOXYHEMOGLOBIN 1.1 % (0.5-1.5); BG FRACTION INSPIRED OXYGEN 100; BG HCO3 ACT 27.6 mmol/L (22.0-26.0); BG METHEMOGLOBIN 0.9 % (0.0-1.5); BG OXYGEN SATURATION 75.5 % (92.0-98.5); BG SAMPLE SITE RIGHT RADIAL; BG TOTAL HEMOGLOBIN 9.6 g/dL (12.0-18.0); BG VENT MODE MASK - NRB
[2022-07-12] MEDS ORDERED: ALBUTEROL (0.083%) 2.5MG/3ML NEB HHN PRN (19:45)
[2022-07-12 20:00] VITALS: BP 167/60
[2022-07-12] MEDS ORDERED: POTASSIUM CHLORIDE 20MEQ TABLET SR PO NR (21:00)
[2022-07-12] MEDS: DEXAMETHASONE 4MG/ML 1ML VIAL IV SCH (21:33)
[2022-07-12] MEDS: ACETAMINOPHEN 325MG TABLET PO PRN (21:35)
[2022-07-12] MEDS: CLONIDINE 0.1MG TABLET PO PRN (21:35)
[2022-07-12] MEDS ORDERED: ALBUTEROL 6.7GM HFA INHALER ORI PRN (22:00)
[2022-07-13] VITALS (16 sets, daily range): BP systolic 126–166; BP diastolic 47–71
[2022-07-13] MEDS: ALBUTEROL (0.083%) 2.5MG/3ML NEB HHN SCH ×3 (00:20→09:58)
[2022-07-13] MEDS: CLONIDINE 0.1MG TABLET PO PRN (04:28)
[2022-07-13 07:01] LABS: CHLORIDE 92 mEq/L (98-107)
[2022-07-13] MEDS: DEXAMETHASONE 4MG/ML 1ML VIAL IV SCH (08:15)
[2022-07-13 09:05] LABS: HEMATOCRIT. 29.2 % (42.0-52.0); HEMOGLOBIN. 8.2 g/dL (14.0-18.0); MEAN CORPUSCULAR HEMOGLOBIN 30.1 pg (28.0-32.0); MEAN CORPUSCULAR VOLUME 107.3 fL (80.0-94.0); MEAN PLATELET VOLUME 8.5 fl (7.4-10.4); PLATELET 251 x1000/uL (130-400); RED BLOOD CELL COUNT 2.72 mill/uL (4.7-6.1); RED CELL DISTRIBUTION WIDTH 19.2 % (11.6-14.6)
[2022-07-13] MEDS ORDERED: DEXTROSE 50% WATER 50ML SYRINGE IV PRN ×2 (09:15)
[2022-07-13] MEDS: BLOOD SUGAR DIAGNOSTIC STRIP TEST SCH ×4 (09:24→21:03)
[2022-07-13] MEDS ORDERED: INSULIN LISPRO 100 UNITS/ML SUBCUT SCH (09:30)
[2022-07-13] MEDS: LEVETIRACETAM 500MG PREMIX 100 ML IV SCH ×2 (10:39→21:00)
[2022-07-13] MEDS ORDERED: BLOOD SUGAR DIAGNOSTIC STRIP TEST SCH (12:00)
[2022-07-13 12:03] LABS: BG CARBOXYHEMOGLOBIN 1.9 % (0.5-1.5); BG DEOXYHEMOGLOBIN 21.1 % (0.0-5.0); BG FRACTION INSPIRED OXYGEN 100; BG METHEMOGLOBIN 0.3 % (0.0-1.5); BG OXYGEN SATURATION 78.4 % (92.0-98.5); BG OXYHEMOGLOBIN 76.7 % (94.0-97.0); BG PCO2 44.2 mmHg (35.0-45.0); BG PH 7.404 (7.350-7.450); BG PO2 47.8 mmHg (75.0-100.0); BG SAMPLE SITE RIGHT BRACHIAL; BG TOTAL HEMOGLOBIN 8.6 g/dL (12.0-18.0); BG VENT MODE MASK - BIPAP
[2022-07-13] MEDS: INSULIN LISPRO 100 UNITS/ML SUBCUT SCH ×3 (12:41→21:25)
[2022-07-13 12:58] LABS: BG BASE EXCESS 1.7 mmol/L (-2.0-2.0); BG CARBOXYHEMOGLOBIN 1.4 % (0.5-1.5); BG DEOXYHEMOGLOBIN 6.2 % (0.0-5.0); BG FRACTION INSPIRED OXYGEN 100; BG HCO3 ACT 26.5 mmol/L (22.0-26.0); BG METHEMOGLOBIN 0.3 % (0.0-1.5); BG OXYGEN SATURATION 93.7 % (92.0-98.5); BG OXYHEMOGLOBIN 92.1 % (94.0-97.0); BG PCO2 42.8 mmHg (35.0-45.0); BG PO2 77.1 mmHg (75.0-100.0); BG SAMPLE SITE RIGHT RADIAL; BG TOTAL HEMOGLOBIN 8.8 g/dL (12.0-18.0); BG VENT MODE MASK - BIPAP
[2022-07-13 14:08] LABS: HEPATITIS B SURFACE ANTIGEN NEGATIVE
[2022-07-13] MEDS ORDERED: AZITHROMYCIN 500 MG TABLET PO NR (18:00)
[2022-07-13] MEDS ORDERED: INSULIN LISPRO 100 UNITS/ML SUBCUT NR (19:30)
[2022-07-13] MEDS: CEFTRIAXONE 1,000 MG in DEXTROSE 5% WATER 50 ML IV SCH (19:37)
[2022-07-13] MEDS ORDERED: EPOETIN ALFA-EPBX 4,000 UNIT/ML VIAL SUBCUT SCH (21:00)
[2022-07-13] MEDS: DIPHENHYDRAMINE 50MG/ML VIAL IV PRN (21:23)
[2022-07-13] MEDS ORDERED: INSULIN GLARGINE 100 UNITS/ML SUBCUT SCH (22:00)
[2022-07-14] VITALS (34 sets, daily range): BP systolic 46–164; BP diastolic 18–82
[2022-07-14] MEDS: ALBUTEROL (0.083%) 2.5MG/3ML NEB HHN SCH ×3 (00:20→21:01)
[2022-07-14 06:12] LABS: HEMATOCRIT. 22.4 % (42.0-52.0); HEMOGLOBIN. 7.5 g/dL (14.0-18.0); MEAN CORPUSCULAR VOLUME 95.2 fL (80.0-94.0); MEAN PLATELET VOLUME 8.3 fl (7.4-10.4); PLATELET 254 x1000/uL (130-400); RED BLOOD CELL COUNT 2.35 mill/uL (4.7-6.1); RED CELL DISTRIBUTION WIDTH 17.3 % (11.6-14.6)
[2022-07-14] MEDS: INSULIN LISPRO 100 UNITS/ML SUBCUT SCH ×3 (07:00→18:49)
[2022-07-14] MEDS: BLOOD SUGAR DIAGNOSTIC STRIP TEST SCH ×4 (07:55→20:23)
[2022-07-14] MEDS: LEVETIRACETAM 500MG PREMIX 100 ML IV SCH (08:08)
[2022-07-14] MEDS: DEXAMETHASONE 4MG/ML 1ML VIAL IV SCH (08:08)
[2022-07-14] MEDS: AZITHROMYCIN 250 MG TABLET PO SCH (08:08)
[2022-07-14 11:44] LABS: PLATELET ESTIMATE NORMAL
[2022-07-14 14:31] LABS: PLATELET ESTIMATE NORMAL
[2022-07-14] MEDS: INSULIN GLARGINE 100 UNITS/ML SUBCUT SCH (22:49)
[2022-07-15] VITALS (13 sets, daily range): BP systolic 119–183; BP diastolic 38–131
[2022-07-15] MEDS: CEFTRIAXONE 1,000 MG in DEXTROSE 5% WATER 50 ML IV SCH ×2 (00:02→21:20)
[2022-07-15] MEDS: LEVETIRACETAM 500MG PREMIX 100 ML IV SCH ×3 (00:02→22:53)
[2022-07-15] MEDS: INSULIN LISPRO 100 UNITS/ML SUBCUT SCH ×5 (00:34→22:52)
[2022-07-15] MEDS: ALBUTEROL (0.083%) 2.5MG/3ML NEB HHN SCH ×3 (02:36→20:33)
[2022-07-15] MEDS: BLOOD SUGAR DIAGNOSTIC STRIP TEST SCH ×4 (05:39→21:17)
[2022-07-15] MEDS: AZITHROMYCIN 250 MG TABLET PO SCH (08:22)
[2022-07-15] MEDS: DEXAMETHASONE 4MG/ML 1ML VIAL IV SCH (08:22)
[2022-07-15] MEDS: INSULIN GLARGINE 100 UNITS/ML SUBCUT SCH (21:45)
[2022-07-15] MEDS: CLONIDINE 0.1MG TABLET PO PRN (22:07)
[2022-07-16] VITALS: BP 149/59
[2022-07-16] MEDS: ACETAMINOPHEN 325MG TABLET PO PRN (00:10)
[2022-07-16] MEDS ORDERED: INSULIN LISPRO 100 UNITS/ML SUBCUT NR (00:15)
[2022-07-16] MEDS: ALBUTEROL (0.083%) 2.5MG/3ML NEB HHN SCH ×4 (01:09→21:21)
[2022-07-16 04:00] VITALS: BP 141/41
[2022-07-16] MEDS: BLOOD SUGAR DIAGNOSTIC STRIP TEST SCH ×4 (06:47→20:40)
[2022-07-16] MEDS: INSULIN LISPRO 100 UNITS/ML SUBCUT SCH ×4 (06:47→21:08)
[2022-07-16 08:00] VITALS: BP 158/57
[2022-07-16] MEDS: AZITHROMYCIN 250 MG TABLET PO SCH (09:18)
[2022-07-16] MEDS: DEXAMETHASONE 4MG/ML 1ML VIAL IV SCH (09:18)
[2022-07-16] MEDS: LEVETIRACETAM 500MG PREMIX 100 ML IV SCH ×2 (09:18→22:00)
[2022-07-16 12:00] VITALS: BP 157/55
[2022-07-16 16:00] VITALS: BP 146/52
[2022-07-16 20:00] VITALS: BP 162/72
[2022-07-16] MEDS: CLONIDINE 0.1MG TABLET PO PRN (21:07)
[2022-07-16] MEDS: INSULIN GLARGINE 100 UNITS/ML SUBCUT SCH (21:08)
[2022-07-16] MEDS: CEFTRIAXONE 1,000 MG in DEXTROSE 5% WATER 50 ML IV SCH (21:36)
[2022-07-17] VITALS (11 sets, daily range): BP systolic 120–196; BP diastolic 39–86
[2022-07-17] MEDS: ALBUTEROL (0.083%) 2.5MG/3ML NEB HHN SCH ×4 (02:33→20:13)
[2022-07-17] MEDS: BLOOD SUGAR DIAGNOSTIC STRIP TEST SCH ×4 (05:56→20:33)
[2022-07-17] MEDS: INSULIN LISPRO 100 UNITS/ML SUBCUT SCH ×4 (06:15→21:43)
[2022-07-17 07:21] LABS: BASOPHILS % 0.4 % (0.0-2.0); EOSINOPHILS % 1.1 % (0.0-5.0); HEMATOCRIT. 24.1 % (42.0-52.0); HEMOGLOBIN. 8.1 g/dL (14.0-18.0); LYMPHOCYTES % 10.7 % (20.0-50.0); MEAN CORPUSCULAR HEMOGLOBIN 31.8 pg (28.0-32.0); MEAN CORPUSCULAR VOLUME 94.3 fL (80.0-94.0); MEAN PLATELET VOLUME 8.4 fl (7.4-10.4); NEUTROPHILS % 78.8 % (40.0-76.0); PLATELET 261 x1000/uL (130-400); RED BLOOD CELL COUNT 2.56 mill/uL (4.7-6.1); RED CELL DISTRIBUTION WIDTH 17.8 % (11.6-14.6)
[2022-07-17] MEDS: AZITHROMYCIN 250 MG TABLET PO SCH (10:03)
[2022-07-17] MEDS: CLONIDINE 0.1MG TABLET PO PRN ×2 (10:03→21:24)
[2022-07-17] MEDS: LEVETIRACETAM 500MG PREMIX 100 ML IV SCH (10:03)
[2022-07-17] MEDS: DEXAMETHASONE 4MG/ML 1ML VIAL IV SCH (10:04)
[2022-07-17] MEDS: AMLODIPINE 10MG TABLET PO SCH (11:30)
[2022-07-17] MEDS: HYDRALAZINE HCL 100MG TABLET PO SCH ×2 (14:19→18:29)
[2022-07-17] MEDS: SEVELAMER CARBONATE 800 MG TABLET PO SCH ×2 (14:19→18:29)
[2022-07-17 18:40] LABS: HEPATITIS B SURFACE ANTIGEN NEGATIVE
[2022-07-17] MEDS: LEVETIRACETAM 500MG TABLET PO SCH (21:23)
[2022-07-17] MEDS: CEFTRIAXONE 1,000 MG in DEXTROSE 5% WATER 50 ML IV SCH (21:23)
[2022-07-17] MEDS: LABETALOL HCL 100MG TABLET PO SCH (21:24)
[2022-07-17] MEDS: INSULIN GLARGINE 100 UNITS/ML SUBCUT SCH (21:40)
[2022-07-18] VITALS (15 sets, daily range): BP systolic 102–174; BP diastolic 40–84
[2022-07-18] MEDS: DIPHENHYDRAMINE 50MG/ML VIAL IV PRN (01:40)
[2022-07-18] MEDS: ALBUTEROL (0.083%) 2.5MG/3ML NEB HHN SCH (02:00)
[2022-07-18] MEDS: BLOOD SUGAR DIAGNOSTIC STRIP TEST SCH ×4 (05:44→21:42)
[2022-07-18] MEDS: CLONIDINE 0.1MG TABLET PO PRN (06:28)
[2022-07-18] MEDS: PANTOPRAZOLE 40MG DR TABLET PO SCH (06:28)
[2022-07-18] MEDS: SEVELAMER CARBONATE 800 MG TABLET PO SCH ×3 (06:28→18:07)
[2022-07-18] MEDS: INSULIN LISPRO 100 UNITS/ML SUBCUT SCH ×4 (06:32→21:55)
[2022-07-18] MEDS: DEXAMETHASONE 4MG/ML 1ML VIAL IV SCH (10:02)
[2022-07-18] MEDS: LABETALOL HCL 100MG TABLET PO SCH ×2 (10:02→22:18)
[2022-07-18] MEDS: AMLODIPINE 10MG TABLET PO SCH (10:03)
[2022-07-18] MEDS: LEVETIRACETAM 500MG TABLET PO SCH ×2 (10:03→21:56)
[2022-07-18] MEDS: HYDRALAZINE HCL 100MG TABLET PO SCH ×3 (10:03→17:50)
[2022-07-18] MEDS ORDERED: ENOXAPARIN 60MG/0.6ML SYR SUBCUT SCH (12:00)
[2022-07-18] MEDS ORDERED: EPOETIN ALFA-EPBX 4,000 UNIT/ML VIAL SUBCUT SCH (21:00)
[2022-07-18] MEDS: INSULIN GLARGINE 100 UNITS/ML SUBCUT SCH (21:55)
[2022-07-18] MEDS: CEFTRIAXONE 1,000 MG in DEXTROSE 5% WATER 50 ML IV SCH (22:18)
[2022-07-19] VITALS: BP 126/38
[2022-07-19 04:00] VITALS: BP 152/51
[2022-07-19] MEDS: BLOOD SUGAR DIAGNOSTIC STRIP TEST SCH ×2 (06:21→11:40)
[2022-07-19] MEDS: PANTOPRAZOLE 40MG DR TABLET PO SCH (06:26)
[2022-07-19] MEDS: INSULIN LISPRO 100 UNITS/ML SUBCUT SCH (06:26)
[2022-07-19 08:00] VITALS: BP 167/51
[2022-07-19] MEDS ORDERED: LEVO-65 MT (08:54)
[2022-07-19] MEDS ORDERED: APIX2.5T MT (08:54)
[2022-07-19] MEDS: LABETALOL HCL 100MG TABLET PO SCH (09:33)
[2022-07-19] MEDS: SEVELAMER CARBONATE 800 MG TABLET PO SCH (09:33)
[2022-07-19] MEDS: AMLODIPINE 10MG TABLET PO SCH (09:34)
[2022-07-19] MEDS: HYDRALAZINE HCL 100MG TABLET PO SCH (09:34)
[2022-07-19] MEDS: LEVETIRACETAM 500MG TABLET PO SCH (09:34)
[2022-07-19] MEDS: DEXAMETHASONE 4MG/ML 1ML VIAL IV SCH (09:34)
[2022-07-19 11:26] VITALS: BP 145/89
== END 2022-07-19 11:45 | disposition home health service (06) | DRG 871 ==
LOC: ER 11:32 → 8WST 13:28 → EDBEDREQTM 13:39 → EDBEDREQ 13:39 → MICUNO 07-13 09:54 → 7EST 07-14 14:55
PROVIDERS: ADMIT Internal Medicine; ATTEND Internal Medicine
PROC: 5A09357 Assistance with Respiratory Ventilation, Less than 24 Consecutive Hours, Continuous Positive Airway Pressure (ICD-10-PCS; principal; 2022-07-12)
PROC: 05HQ33Z Insertion of Infusion Device into Left External Jugular Vein, Percutaneous Approach (ICD-10-PCS; 2022-07-12)
PROC: B544ZZA Ultrasonography of Left Jugular Veins, Guidance (ICD-10-PCS; 2022-07-12)
PROC: 02H633Z Insertion of Infusion Device into Right Atrium, Percutaneous Approach (ICD-10-PCS; 2022-07-13)
PROC: B548ZZA Ultrasonography of Superior Vena Cava, Guidance (ICD-10-PCS; 2022-07-13)
PROC: 5A09357 Assistance with Respiratory Ventilation, Less than 24 Consecutive Hours, Continuous Positive Airway Pressure (ICD-10-PCS; 2022-07-14)
PROC: 5A1D70Z Performance of Urinary Filtration, Intermittent, Less than 6 Hours Per Day (ICD-10-PCS; 2022-07-14)
PROC: 5A1D70Z Performance of Urinary Filtration, Intermittent, Less than 6 Hours Per Day (ICD-10-PCS; 2022-07-15)
PROC: 5A1D70Z Performance of Urinary Filtration, Intermittent, Less than 6 Hours Per Day (ICD-10-PCS; 2022-07-17)
PROC: 5A1D70Z Performance of Urinary Filtration, Intermittent, Less than 6 Hours Per Day (ICD-10-PCS; 2022-07-18)
DX: A41.89 Other specified sepsis (principal); J12.82 Pneumonia due to coronavirus disease 2019; J96.01 Acute respiratory failure with hypoxia; N18.6 End stage renal disease; U07.1 COVID-19; G93.40 Encephalopathy, unspecified; I13.2 Hypertensive heart and chronic kidney disease with heart failure and with stage 5 chronic kidney disease, or end stage renal disease; I82.C12 Acute embolism and thrombosis of left internal jugular vein; G40.909 Epilepsy, unspecified, not intractable, without status epilepticus; E11.649 Type 2 diabetes mellitus with hypoglycemia without coma; E11.22 Type 2 diabetes mellitus with diabetic chronic kidney disease; I48.91 Unspecified atrial fibrillation; E11.40 Type 2 diabetes mellitus with diabetic neuropathy, unspecified; E11.21 Type 2 diabetes mellitus with diabetic nephropathy; E11.319 Type 2 diabetes mellitus with unspecified diabetic retinopathy without macular edema; I50.9 Heart failure, unspecified; I25.10 Atherosclerotic heart disease of native coronary artery without angina pectoris; Z99.2 Dependence on renal dialysis; Z79.899 Other long term (current) drug therapy; Z78.9 Other specified health status; Z82.49 Family history of ischemic heart disease and other diseases of the circulatory system
CPT/HCPCS: 36415; 36573; 36600; 71045; 80048; 80053; 82375; 82533; 82728; 82805; 82962; 83036; 83615; 84145; 85025; 86705; 86706; 86709; 86803; 87340; 87426; 90935; 93971; 94640; 94660; 99285; C1725; J0696; J0885; J1100; J1200; J1650; J1815; J1953; J2060; J7060

== ENCOUNTER 2022-08-10 10:36 | Inpatient (IN) | payer MEDICARE, MEDICAID ==
[~2022-08-10] VITALS: Ht 167.6 cm; Wt 66.7 kg
[~2022-08-10 10:36] MED LIST changes: -AMOX1TAB16 MT; +APIX2.5T MT; +LEVO-65 MT; -OFLO5DRO4 LEFT EAR; -VALS320T2 MT; -amlodipine PO
[2022-08-10 11:58] LABS: CHLORIDE 91 mEq/L (98-107)
[2022-08-10 12:02] LABS: BASOPHILS % 3.2 % (0.0-2.0); EOSINOPHILS % 3.6 % (0.0-5.0); HEMATOCRIT. 28.2 % (42.0-52.0); HEMOGLOBIN. 9.2 g/dL (14.0-18.0); LYMPHOCYTES % 7.2 % (20.0-50.0); MEAN CORPUSCULAR HEMOGLOBIN 29.9 pg (28.0-32.0); MEAN CORPUSCULAR VOLUME 91.1 fL (80.0-94.0); MEAN PLATELET VOLUME 8.7 fl (7.4-10.4); MONOCYTES % 9.1 % (2.0-8.0); NEUTROPHILS % 76.9 % (40.0-76.0); PLATELET 326 x1000/uL (130-400); RED BLOOD CELL COUNT 3.09 mill/uL (4.7-6.1); RED CELL DISTRIBUTION WIDTH 18.2 % (11.6-14.6)
[2022-08-10] MEDS ORDERED: DEXTROSE 50% WATER 50ML SYRINGE IV NR (12:30)
[2022-08-10 20:30] VITALS: BP 165/81
[2022-08-10] MEDS ORDERED: CLONIDINE 0.1MG TABLET PO PRN (22:30)
[2022-08-10] MEDS ORDERED: ACETAMINOPHEN 325MG TABLET PO PRN (22:30)
[2022-08-10] MEDS ORDERED: ONDANSETRON HCL 4MG/2ML INJ IV PRN (22:30)
[2022-08-10] MEDS ORDERED: DEXTROSE 50% WATER 50ML SYRINGE IV PRN (22:45)
[2022-08-10] MEDS ORDERED: INSULIN LISPRO 100 UNITS/ML SUBCUT NR (23:00)
[2022-08-10] MEDS ORDERED: INSULIN GLARGINE 100 UNITS/ML SUBCUT NR (23:00)
[2022-08-10] MEDS: INSULIN LISPRO 100 UNITS/ML SUBCUT SCH (23:02)
[2022-08-10] MEDS: AMLODIPINE 10MG TABLET PO SCH (23:08)
[2022-08-11] VITALS (15 sets, daily range): BP systolic 106–183; BP diastolic 52–87
[2022-08-11] MEDS ORDERED: PANTOPRAZOLE 40MG DR TABLET PO SCH ×2 (06:50)
[2022-08-11] MEDS: BLOOD SUGAR DIAGNOSTIC STRIP TEST SCH ×2 (06:57→12:30)
[2022-08-11] MEDS: INSULIN LISPRO 100 UNITS/ML SUBCUT SCH ×2 (06:58→12:20)
[2022-08-11] MEDS ORDERED: APIXABAN 2.5 MG TABLET PO SCH (09:00)
[2022-08-11] MEDS ORDERED: LABETALOL HCL 100MG TABLET PO SCH (09:00)
[2022-08-11 10:22] LABS: BASOPHILS % 1.3 % (0.0-2.0); EOSINOPHILS % 2.9 % (0.0-5.0); HEMATOCRIT. 26.5 % (42.0-52.0); HEMOGLOBIN. 8.8 g/dL (14.0-18.0); LYMPHOCYTES % 7.5 % (20.0-50.0); MEAN CORPUSCULAR HEMOGLOBIN 30.2 pg (28.0-32.0); MEAN CORPUSCULAR VOLUME 90.9 fL (80.0-94.0); MEAN PLATELET VOLUME 8.8 fl (7.4-10.4); MONOCYTES % 8.7 % (2.0-8.0); NEUTROPHILS % 79.6 % (40.0-76.0); PLATELET 352 x1000/uL (130-400); RED BLOOD CELL COUNT 2.92 mill/uL (4.7-6.1)
[2022-08-11] MEDS: SEVELAMER CARBONATE 800 MG TABLET PO SCH ×2 (11:14→13:00)
[2022-08-11] MEDS: AMLODIPINE 10MG TABLET PO SCH (11:15)
[2022-08-11] MEDS: HYDRALAZINE HCL 100MG TABLET PO SCH ×2 (11:17→13:00)
[2022-08-11 12:21] LABS: HEPATITIS B SURFACE ANTIGEN NEGATIVE
[2022-08-11] MEDS ORDERED: EPOETIN ALFA-EPBX 4,000 UNIT/ML VIAL SUBCUT SCH (21:00)
[2022-08-11] MEDS ORDERED: INSULIN GLARGINE 100 UNITS/ML SUBCUT SCH (21:00)
== END 2022-08-11 16:40 | disposition home or self-care (01) | DRG 682 ==
LOC: ER 10:40 → EDBEDREQTM 11:54 → EDBEDREQ 11:54 → MICUSO 13:09 → EDBEDREQTM 13:11 → EDBEDREQ 13:11 → 3WST 20:30
PROVIDERS: ADMIT Internal Medicine; ATTEND Internal Medicine
PROC: 5A1D70Z Performance of Urinary Filtration, Intermittent, Less than 6 Hours Per Day (ICD-10-PCS; principal; 2022-08-11)
DX: I12.0 Hypertensive chronic kidney disease with stage 5 chronic kidney disease or end stage renal disease (principal); K85.90 Acute pancreatitis without necrosis or infection, unspecified; N18.6 End stage renal disease; E46 Unspecified protein-calorie malnutrition; E87.1 Hypo-osmolality and hyponatremia; E87.70 Fluid overload, unspecified; I16.0 Hypertensive urgency; E87.5 Hyperkalemia; I48.91 Unspecified atrial fibrillation; E11.22 Type 2 diabetes mellitus with diabetic chronic kidney disease; E11.40 Type 2 diabetes mellitus with diabetic neuropathy, unspecified; E11.51 Type 2 diabetes mellitus with diabetic peripheral angiopathy without gangrene; E11.65 Type 2 diabetes mellitus with hyperglycemia; R04.0 Epistaxis; E78.5 Hyperlipidemia, unspecified; I27.20 Pulmonary hypertension, unspecified; D63.8 Anemia in other chronic diseases classified elsewhere; Z91.15 Patient's noncompliance with renal dialysis; Z79.4 Long term (current) use of insulin; Z99.2 Dependence on renal dialysis; Z82.49 Family history of ischemic heart disease and other diseases of the circulatory system; Z79.01 Long term (current) use of anticoagulants; Z86.16 Personal history of COVID-19; Z68.23 Body mass index [BMI] 23.0-23.9, adult
CPT/HCPCS: 36415; 71045; 80048; 80053; 82962; 83036; 84484; 85025; 86705; 86709; 86803; 87340; 90935; 93005; 99285; J1815

== ENCOUNTER 2022-08-27 14:58 | Emergency (ER) | payer MEDICARE, MEDICAID ==
[~2022-08-27] VITALS: Ht 162.6 cm; Wt 70.0 kg
[2022-08-27 15:04] VITALS: BP 157/86
== END 2022-08-27 15:58 | disposition left against medical advice (07) ==
LOC: ER 15:28
DX: E11.649 Type 2 diabetes mellitus with hypoglycemia without coma (principal); I12.0 Hypertensive chronic kidney disease with stage 5 chronic kidney disease or end stage renal disease; N18.6 End stage renal disease; Z79.4 Long term (current) use of insulin; Z99.2 Dependence on renal dialysis
CPT/HCPCS: 82962; 99283

== ENCOUNTER 2022-10-04 12:11 | Emergency (ER) | payer MEDICARE, MEDICAID ==
[~2022-10-04] VITALS: Ht 162.6 cm; Wt 64.0 kg
[2022-10-04 12:22] VITALS: BP 144/80
[2022-10-04 14:10] LABS: HEMATOCRIT 25.6 % (42.0-52.0); HEMOGLOBIN 8.4 g/dL (14.0-18.0); MEAN CORPUSCULAR HEMOGLOBIN 30.1 pg (28.0-32.0); MEAN CORPUSCULAR VOLUME 91.3 fL (80.0-94.0); PLATELET 256 x1000/uL (130-400); RED CELL DISTRIBUTION WIDTH 21.5 % (11.6-14.6)
[2022-10-04 14:14] LABS: CHLORIDE 88 mEq/L (98-107)
[2022-10-04 14:18] LABS: INR 1.1; PARTIAL THROMBOPLASTIN TIME 32.8 sec (23.4-31.0); PROTHROMBIN TIME 11.4 sec (9.6-11.0)
[2022-10-04] MEDS ORDERED: INSULIN LISPRO 100 UNITS/ML SUBCUT NR (14:45)
[2022-10-04] MEDS ORDERED: POTASSIUM CHLORIDE 20MEQ TABLET SR PO NR (14:45)
== END 2022-10-04 15:30 | disposition home or self-care (01) ==
LOC: ER 12:11
DX: R04.0 Epistaxis (principal); E11.65 Type 2 diabetes mellitus with hyperglycemia; E87.6 Hypokalemia; I12.0 Hypertensive chronic kidney disease with stage 5 chronic kidney disease or end stage renal disease; E11.22 Type 2 diabetes mellitus with diabetic chronic kidney disease; N18.6 End stage renal disease; Z99.2 Dependence on renal dialysis; Z79.899 Other long term (current) drug therapy
CPT/HCPCS: 30901; 36415; 71045; 80053; 82962; 83880; 84484; 85027; 85610; 85730; 86850; 86900; 86901; 96372; 99285; J1815

== ENCOUNTER 2022-10-05 10:19 | Emergency (ER) | payer MEDICARE, MEDICAID ==
[~2022-10-05] VITALS: Ht 167.6 cm; Wt 57.0 kg
[2022-10-05 10:21] VITALS: BP 169/55
== END 2022-10-05 11:35 | disposition home or self-care (01) ==
LOC: ER 10:19
DX: R68.89 Other general symptoms and signs (principal); I12.0 Hypertensive chronic kidney disease with stage 5 chronic kidney disease or end stage renal disease; E11.22 Type 2 diabetes mellitus with diabetic chronic kidney disease; N18.6 End stage renal disease; Z99.2 Dependence on renal dialysis
CPT/HCPCS: 30901; 99284

== ENCOUNTER 2022-12-25 06:15 | Emergency (ER) | payer MEDICARE, MEDICAID ==
[~2022-12-25] VITALS: Ht 162.6 cm; Wt 64.0 kg
[2022-12-25 06:20] VITALS: TEMP 98.4; O2SAT 98
[2022-12-25 10:56] VITALS: BP 113/70; PULSE 108; RESP 24
== END 2022-12-25 10:57 | disposition home or self-care (01) ==
LOC: ER 06:23
DX: T82.590A Other mechanical complication of surgically created arteriovenous fistula, initial encounter (principal); I12.0 Hypertensive chronic kidney disease with stage 5 chronic kidney disease or end stage renal disease; E11.22 Type 2 diabetes mellitus with diabetic chronic kidney disease; N18.6 End stage renal disease; Z79.899 Other long term (current) drug therapy
CPT/HCPCS: 99283

== ENCOUNTER 2022-12-31 08:24 | Emergency (ER) | payer MEDICARE, MEDICAID ==
[~2022-12-31] VITALS: Ht 165.1 cm; Wt 65.0 kg
[2022-12-31 08:26] VITALS: TEMP 98.6; O2SAT 99
[2022-12-31 08:45] VITALS: BP 169/68; PULSE 85; RESP 14
[2022-12-31] MEDS ORDERED: LIDOCAINE HCL/PF 1% 10 MG/ML 5ML VIAL INFIL ONE (08:45)
[2022-12-31 09:42] LABS: HEMATOCRIT. 33.1 % (42.0-52.0); HEMOGLOBIN. 11.2 g/dL (14.0-18.0); MEAN CORPUSCULAR HEMOGLOBIN 30.2 pg (28.0-32.0); MEAN PLATELET VOLUME 9.2 fl (7.4-10.4); PLATELET 208 x1000/uL (130-400); RED BLOOD CELL COUNT 3.72 mill/uL (4.7-6.1)
[2022-12-31 09:50] LABS: CHLORIDE 95 mEq/L (98-107)
[2022-12-31] MEDS ORDERED: POTASSIUM CHLORIDE 20MEQ TABLET SR PO ONE (10:30)
[2022-12-31 10:49] LABS: PLATELET ESTIMATE NORMAL
== END 2022-12-31 11:15 | disposition home or self-care (01) ==
LOC: ER 08:24
DX: T82.838A Hemorrhage due to vascular prosthetic devices, implants and grafts, initial encounter (principal); E11.22 Type 2 diabetes mellitus with diabetic chronic kidney disease; I12.0 Hypertensive chronic kidney disease with stage 5 chronic kidney disease or end stage renal disease; N18.6 End stage renal disease; Z79.899 Other long term (current) drug therapy
CPT/HCPCS: 99283; 80053; 85025; 36415; 12001; J3490

== ENCOUNTER 2023-01-03 08:34 | Emergency (ER) | payer MEDICARE, MEDICAID ==
[~2023-01-03] VITALS: Ht 162.6 cm; Wt 58.0 kg
[2023-01-03 08:43] VITALS: BP 158/65; PULSE 79; RESP 20; TEMP 98.2; O2SAT 97
[2023-01-03] MEDS ORDERED: LIDOCAINE HCL/PF 1% 10 MG/ML 5ML VIAL INFIL ONE (09:30)
== END 2023-01-03 11:56 | disposition home or self-care (01) ==
LOC: ER 08:34
DX: T82.838A Hemorrhage due to vascular prosthetic devices, implants and grafts, initial encounter (principal); X58.XXXA Exposure to other specified factors, initial encounter; Y93.89 Activity, other specified; Y92.89 Other specified places as the place of occurrence of the external cause; Y99.8 Other external cause status
CPT/HCPCS: 99282; 12001; J3490; 99281

== ENCOUNTER 2023-02-06 09:30 | Inpatient (IN) | payer MEDICARE, MEDICAID ==
[~2023-02-06] VITALS: Ht 162.6 cm; Wt 49.6 kg
[~2023-02-06 09:30] MED LIST changes: +HYDR-3735 PO; -LEVO-65 MT
[2023-02-06 09:32] VITALS: O2SAT 98
[2023-02-06 10:53] LABS: HEMATOCRIT. 32.2 % (42.0-52.0); HEMOGLOBIN. 10.7 g/dL (14.0-18.0); MEAN CORPUSCULAR HEMOGLOBIN 30.5 pg (28.0-32.0); MEAN CORPUSCULAR HGB CONC 33.2 g/dL (31.0-37.0); RED CELL DISTRIBUTION WIDTH 19.7 % (11.6-14.6)
[2023-02-06 10:59] LABS: DIFFERENTIAL COMMENT 1
[2023-02-06 11:22] LABS: PROTHROMBIN TIME 11.1 sec (9.6-11.0)
[2023-02-06 11:26] LABS: ALBUMIN 3.3 g/dL (3.4-5.0); CALCIUM 9.2 mg/dL (8.5-10.1); CARBON DIOXIDE 26 mEq/L (21-32); CHLORIDE 97 mEq/L (98-107); GLUCOSE 235 mg/dL (70-105); INDEX HEMOLYSI 1 (1-3); INDEX ICTERIC 1 (1-4); INDEX LIPEMIC 1 (1-3); POTASSIUM 3.2 mEq/L (3.5-5.1); SODIUM 135 mEq/L (136-145); UREA NITROGEN BLOOD 28 mg/dL (7-21)
[2023-02-06 11:32] LABS: ALANINE AMINOTRANSFERASE 19 IU/L (13-61); ASPARTATE AMINOTRANSFERASE 16 IU/L (15-37); BILIRUBIN TOTAL 0.5 mg/dL (0.1-1.0); CREATININE 3.1 mg/dL (0.6-1.3); PROTEIN TOTAL 8.7 g/dL (6.0-8.3)
[2023-02-06 12:21] LABS: ANISOCYTOSIS 2+; PLATELET ESTIMATE NORMAL
[2023-02-06 14:02] LABS: NT PRO B-TYPE NATRIURETIC PEP 104860 pg/mL (5-125); TROPONIN I HIGH SENSITIVITY 32 ng/L (<78)
[2023-02-06] MEDS ORDERED: KETOROLAC 15MG/ML VIAL IV ONE (14:45)
[2023-02-06] MEDS ORDERED: DOCUSATE SODIUM 100MG CAPSULE PO PRN (16:30)
[2023-02-06] MEDS ORDERED: MAGNESIUM/ALUMINUM HYDROXIDE/SIMETHICONE 30ML UDC PO PRN (16:30)
[2023-02-06] MEDS ORDERED: CLONIDINE 0.1MG TABLET PO PRN (16:30)
[2023-02-06] MEDS ORDERED: IPRATROPIUM/ALBUTEROL 0.5-3(2.5)MG/3ML NEB HHN PRN (16:30)
[2023-02-06] MEDS ORDERED: GUAIFENESIN 200MG/10ML SUGAR FREE UDC PO PRN (16:30)
[2023-02-06] MEDS ORDERED: ACETAMINOPHEN 325MG TABLET PO PRN (16:30)
[2023-02-06] MEDS ORDERED: ENOXAPARIN 30MG/0.3ML SYR SUBCUT SCH (17:00)
[2023-02-06] MEDS ORDERED: CEFAZOLIN 2,000 MG in DEXT 5% WATER 100 ML IV SCH (18:30)
[2023-02-06 19:20] VITALS: BP 165/66; PULSE 88; RESP 18; TEMP 98.1
[2023-02-06 20:00] VITALS: BP 165/36; PULSE 88; RESP 18; TEMP 98.1
[2023-02-06] MEDS ORDERED: DEXTROSE 50% WATER 50ML SYRINGE IV PRN (21:30)
[2023-02-06] MEDS ORDERED: SODI454P9 PO (21:32)
[2023-02-06] MEDS ORDERED: INSASP SUBCUT (21:32)
[2023-02-06] MEDS ORDERED: SODI10PO PO (21:32)
[2023-02-06] MEDS ORDERED: FOLI1TAB87 PO (21:32)
[2023-02-06] MEDS: BLOOD SUGAR DIAGNOSTIC STRIP TEST SCH (21:41)
[2023-02-06] MEDS: FAMOTIDINE 20MG TABLET PO SCH (21:46)
[2023-02-06] MEDS: HYDRALAZINE HCL 100MG TABLET PO SCH (21:46)
[2023-02-06] MEDS: LABETALOL HCL 100MG TABLET PO SCH (21:47)
[2023-02-06] MEDS: INSULIN LISPRO 100 UNITS/ML SUBCUT SCH (21:50)
[2023-02-06] MEDS: CEFAZOLIN 2,000 MG in DEXT 5% WATER 100 ML IV SCH (23:31)
[2023-02-07] VITALS (14 sets, daily range): BP systolic 96–175; BP diastolic 35–74; PULSE 70–86; RESP 16–20; TEMP 96.9–98.3
[2023-02-07] MEDS: HYDRALAZINE HCL 100MG TABLET PO SCH ×3 (06:12→22:05)
[2023-02-07] MEDS: BLOOD SUGAR DIAGNOSTIC STRIP TEST SCH ×4 (07:50→19:58)
[2023-02-07] MEDS: INSULIN LISPRO 100 UNITS/ML SUBCUT SCH ×4 (08:00→22:03)
[2023-02-07] MEDS: LABETALOL HCL 100MG TABLET PO SCH ×2 (08:45→22:05)
[2023-02-07] MEDS: AMLODIPINE 10MG TABLET PO SCH (08:45)
[2023-02-07] MEDS: APIXABAN 2.5 MG TABLET PO SCH ×2 (08:45→17:33)
[2023-02-07] MEDS: INS NPH/REG HM 70-30 10ML VIAL (HUMULIN 70-30) SUBCUT SCH (09:00)
[2023-02-07] MEDS ORDERED: INS NPH/REG HM 70-30 10ML VIAL (HUMULIN 70-30) SUBCUT SCH (17:00)
[2023-02-07] MEDS: FAMOTIDINE 20MG TABLET PO SCH (21:59)
[2023-02-07] MEDS: CEFAZOLIN 2,000 MG in DEXT 5% WATER 100 ML IV SCH (21:59)
[2023-02-08 00:33] VITALS: BP 146/37; PULSE 76; RESP 19; TEMP 97.6
[2023-02-08 04:00] VITALS: BP 181/47; PULSE 76; RESP 18; TEMP 97.9
[2023-02-08] MEDS: HYDRALAZINE HCL 100MG TABLET PO SCH (05:10)
[2023-02-08 08:00] VITALS: BP 184/54; PULSE 89; RESP 18; TEMP 97.7
[2023-02-08] MEDS: BLOOD SUGAR DIAGNOSTIC STRIP TEST SCH (08:01)
[2023-02-08] MEDS: INSULIN LISPRO 100 UNITS/ML SUBCUT SCH (08:48)
[2023-02-08 08:49] VITALS: PULSE 89
[2023-02-08] MEDS: LABETALOL HCL 100MG TABLET PO SCH (08:49)
[2023-02-08] MEDS: AMLODIPINE 10MG TABLET PO SCH (08:50)
[2023-02-08] MEDS: APIXABAN 2.5 MG TABLET PO SCH (08:50)
[2023-02-08] MEDS: INS NPH/REG HM 70-30 10ML VIAL (HUMULIN 70-30) SUBCUT SCH (09:00)
[2023-02-09] MEDS ORDERED: FAMOTIDINE 20MG TABLET PO SCH (22:00)
== END 2023-02-08 09:15 | disposition left against medical advice (07) | DRG 602 ==
LOC: ER 10:02 → 7WST 14:11
PROVIDERS: ADMIT Internal Medicine; ATTEND Internal Medicine
PROC: 5A1D70Z Performance of Urinary Filtration, Intermittent, Less than 6 Hours Per Day (ICD-10-PCS; principal; 2023-02-07)
DX: L03.113 Cellulitis of right upper limb (principal); K85.90 Acute pancreatitis without necrosis or infection, unspecified; N18.6 End stage renal disease; D62 Acute posthemorrhagic anemia; E46 Unspecified protein-calorie malnutrition; I13.2 Hypertensive heart and chronic kidney disease with heart failure and with stage 5 chronic kidney disease, or end stage renal disease; Z68.1 Body mass index [BMI] 19.9 or less, adult; Z53.29 Procedure and treatment not carried out because of patient's decision for other reasons; E11.40 Type 2 diabetes mellitus with diabetic neuropathy, unspecified; E11.51 Type 2 diabetes mellitus with diabetic peripheral angiopathy without gangrene; E11.22 Type 2 diabetes mellitus with diabetic chronic kidney disease; E11.649 Type 2 diabetes mellitus with hypoglycemia without coma; I27.20 Pulmonary hypertension, unspecified; I50.9 Heart failure, unspecified; R04.0 Epistaxis; Z79.4 Long term (current) use of insulin; Z79.899 Other long term (current) drug therapy; Z89.422 Acquired absence of other left toe(s); Z86.16 Personal history of COVID-19; Z82.49 Family history of ischemic heart disease and other diseases of the circulatory system; Z99.2 Dependence on renal dialysis
CPT/HCPCS: 36415; 71045; 80053; 82962; 83036; 83880; 84484; 85025; 90935; 93306; 93970; 93971; 99285; J0690; J1650; J1815; J1885; J7060

== ENCOUNTER 2023-04-01 09:25 | Inpatient (IN) | payer MEDICARE, MEDICAID ==
[~2023-04-01] VITALS: Ht 167.6 cm; Wt 59.1 kg
[~2023-04-01 09:25] MED LIST changes: +FOLI1TAB87 PO; +INSASP SUBCUT; +SODI10PO PO; +SODI454P9 PO
[2023-04-01 09:29] VITALS: O2SAT 96
[2023-04-01 10:35] LABS: HEMATOCRIT. 32.9 % (42.0-52.0); HEMOGLOBIN. 10.8 g/dL (14.0-18.0); MEAN CORPUSCULAR HEMOGLOBIN 30.3 pg (28.0-32.0); MEAN CORPUSCULAR HGB CONC 32.8 g/dL (31.0-37.0); MEAN CORPUSCULAR VOLUME 92.6 fL (80.0-94.0); MEAN PLATELET VOLUME 8.8 fl (7.4-10.4); PLATELET 193 x1000/uL (130-400); RED BLOOD CELL COUNT 3.55 mill/uL (4.7-6.1); RED CELL DISTRIBUTION WIDTH 19.3 % (11.6-14.6); WHITE BLOOD COUNT 9.6 x1000/uL (4.5-11.0)
[2023-04-01 10:40] LABS: DIFFERENTIAL COMMENT 1
[2023-04-01 10:51] LABS: CHLORIDE 97 mEq/L (98-107); INDEX HEMOLYSI 1 (1-3); INDEX ICTERIC 1 (1-4); INDEX LIPEMIC 1 (1-3); POTASSIUM 3.3 mEq/L (3.5-5.1); SODIUM 135 mEq/L (136-145)
[2023-04-01 11:02] LABS: PLATELET ESTIMATE NORMAL
[2023-04-01 11:12] LABS: ALANINE AMINOTRANSFERASE 28 IU/L (13-61); ALBUMIN 3.7 g/dL (3.4-5.0); ASPARTATE AMINOTRANSFERASE 22 IU/L (15-37); BILIRUBIN TOTAL 0.7 mg/dL (0.1-1.0); CALCIUM 8.1 mg/dL (8.5-10.1); CARBON DIOXIDE 28 mEq/L (21-32); CREATININE 2.9 mg/dL (0.6-1.3); GLUCOSE 254 mg/dL (70-105); NT PRO B-TYPE NATRIURETIC PEP 61206 pg/mL (5-125); PROTEIN TOTAL 8.9 g/dL (6.0-8.3); UREA NITROGEN BLOOD 36 mg/dL (7-21)
[2023-04-01] MEDS ORDERED: HYDROCODONE/ACETAMINOPHEN 5/325MG TABLET PO ONE (11:15)
[2023-04-01 13:06] LABS: INR 1.1; PARTIAL THROMBOPLASTIN TIME 34.1 sec (23.4-31.0); PROTHROMBIN TIME 11.4 sec (9.6-11.0)
[2023-04-01] MEDS ORDERED: GUAIFENESIN 200MG/10ML SUGAR FREE UDC PO PRN (14:30)
[2023-04-01] MEDS ORDERED: ACETAMINOPHEN 325MG TABLET PO PRN ×2 (14:30)
[2023-04-01] MEDS ORDERED: DOCUSATE SODIUM 100MG CAPSULE PO PRN (14:30)
[2023-04-01] MEDS ORDERED: ONDANSETRON HCL 4MG/2ML INJ IV PRN (14:30)
[2023-04-01] MEDS ORDERED: IPRATROPIUM/ALBUTEROL 0.5-3(2.5)MG/3ML NEB HHN PRN (14:30)
[2023-04-01] MEDS ORDERED: CLONIDINE 0.1MG TABLET PO PRN (14:30)
[2023-04-01] MEDS: ENOXAPARIN 60MG/0.6ML SYR SUBCUT SCH (15:08)
[2023-04-01] MEDS ORDERED: DEXTROSE 50% WATER 50ML SYRINGE IV PRN (18:00)
[2023-04-01 20:00] VITALS: BP 167/62; PULSE 82; RESP 17; TEMP 98.4
[2023-04-01 20:27] VITALS: BP 167/62; PULSE 83; TEMP 98.4
[2023-04-01] MEDS: LABETALOL HCL 100MG TABLET PO SCH (21:47)
[2023-04-01] MEDS: SEVELAMER CARBONATE 800 MG TABLET PO SCH (21:47)
[2023-04-01] MEDS ORDERED: INSULIN GLARGINE 100 UNITS/ML SUBCUT SCH (22:30)
[2023-04-01] MEDS: AMLODIPINE 10MG TABLET PO SCH (22:49)
[2023-04-01] MEDS: INSULIN LISPRO 100 UNITS/ML SUBCUT SCH (22:50)
[2023-04-02] VITALS (28 sets, daily range): BP systolic 143–177; BP diastolic 47–90; PULSE 67–88; RESP 10–24; TEMP 97.6–98
[2023-04-02] MEDS: INSULIN LISPRO 100 UNITS/ML SUBCUT SCH ×2 (08:00→13:00)
[2023-04-02] MEDS: SEVELAMER CARBONATE 800 MG TABLET PO SCH ×2 (08:44→13:33)
[2023-04-02] MEDS: AMLODIPINE 10MG TABLET PO SCH (08:44)
[2023-04-02] MEDS: LABETALOL HCL 100MG TABLET PO SCH (08:50)
[2023-04-02] MEDS ORDERED: PANTOPRAZOLE SODIUM 40 MG/VIAL IV SCH (10:45)
[2023-04-02] MEDS ORDERED: LIDOCAINE HCL 1% 10 MG/ML 10ML VIAL ONE (14:01)
[2023-04-02] MEDS ORDERED: IOHEXOL-300 100 ML BOTTLE ONE (14:02)
[2023-04-02] MEDS ORDERED: FENTANYL CITRATE/PF 50MCG/ML 2ML VIAL IV NR (14:11)
[2023-04-02] MEDS ORDERED: FENTANYL CITRATE/PF 50MCG/ML 2ML VIAL ONE (14:11)
[2023-04-02] MEDS: ENOXAPARIN 60MG/0.6ML SYR SUBCUT SCH (15:00)
[2023-04-02] MEDS ORDERED: INSULIN GLARGINE 100 UNITS/ML SUBCUT SCH (22:00)
== END 2023-04-02 16:00 | disposition left against medical advice (07) | DRG 314 ==
LOC: ER 09:25 → 5EST 20:14
PROVIDERS: ADMIT Internal Medicine; ATTEND Internal Medicine
PROC: 5A1D70Z Performance of Urinary Filtration, Intermittent, Less than 6 Hours Per Day (ICD-10-PCS; principal; 2023-04-01)
DX: T82.510A Breakdown (mechanical) of surgically created arteriovenous fistula, initial encounter (principal); N18.6 End stage renal disease; I82.612 Acute embolism and thrombosis of superficial veins of left upper extremity; I12.0 Hypertensive chronic kidney disease with stage 5 chronic kidney disease or end stage renal disease; E11.22 Type 2 diabetes mellitus with diabetic chronic kidney disease; Z99.2 Dependence on renal dialysis; E11.65 Type 2 diabetes mellitus with hyperglycemia; Y71.2 Prosthetic and other implants, materials and accessory cardiovascular devices associated with adverse incidents; L98.499 Non-pressure chronic ulcer of skin of other sites with unspecified severity; Z53.29 Procedure and treatment not carried out because of patient's decision for other reasons; D64.9 Anemia, unspecified; Z79.4 Long term (current) use of insulin; Z79.899 Other long term (current) drug therapy; Z82.3 Family history of stroke; Z82.49 Family history of ischemic heart disease and other diseases of the circulatory system; Z91.83 Wandering in diseases classified elsewhere
CPT/HCPCS: 36415; 36902; 71045; 80053; 82962; 83605; 83880; 85025; 90935; 93005; 93922; 99152; 99153; 99285; C1725; C1766; C1769; C1887; C9113; J1644; J1650; J1815; J3010; J3490; Q9967; G0500